=== PATIENT | male | born 1975 | race Caucasian/White ===

== ENCOUNTER 2021-03-21 11:37 | Emergency (ER) | payer MEDICARE, MEDICAID | END 2021-03-21 14:00 | disposition home or self-care (01) | LOC: CSHERS 11:37 | DX: S39.012A Strain of muscle, fascia and tendon of lower back, initial encounter (principal); S00.03XA Contusion of scalp, initial encounter; I10 Essential (primary) hypertension; F17.210 Nicotine dependence, cigarettes, uncomplicated; W19.XXXA Unspecified fall, initial encounter | CPT/HCPCS: 72100 ==

== ENCOUNTER 2021-11-25 21:26 | Inpatient (IN) | payer MEDICARE, MEDICAID ==
[2021-11-25] MEDS ORDERED: Ondansetron PF 4 MG/2 ML Vial ONE (21:57)
[2021-11-25] MEDS ORDERED: Ketorolac Tromethamine 30 MG/ML VIAL ONE (21:58)
[2021-11-25 22:03] LABS: #Basophils 0.1 10x3/uL (0.0-0.2); #Eosinphils 0.1 10x3/uL (0.0-0.5); #Monocytes 1.6 10x3/uL (0.0-1.1); #Neutrophils 13.1 10x3/uL (1.5-8.4); %Basophils 0.5 % (0.0-2.0); %Eosinophils 0.3 % (0.0-6.0); %Lymphocytes 14.5 % (18.0-47.0); %Monocytes 9.1 % (0.0-10.0); %Neutrophils 75.3 % (40.0-75.0); Hemoglobin 15.8 g/dL (13.5-17.5); Mean Corpuscular Hemoglobin 28.8 pg (27.0-33.0); Mean Corpuscular Volume 82.3 fl (81.2-95.1); Mean Platelet Volume 8.5 fl (7.4-10.4); Platelet Count 564 10x3/uL (150-450); Red Blood Cell (RBC) Count 5.48 10x6/uL (4.32-5.72); White Blood Cell (WBC) Count 17.5 10x3/uL (3.5-10.5)
[2021-11-25 22:05] LABS: ALT (SGPT) 13 U/L (8-55); AST (SGOT) 12 U/L (5-34); Albumin 5.2 g/dL (3.5-5.0); Alkaline Phosphatase 142 U/L (40-110); Anion Gap 24 mmol/L (10-20); BUN (Urea Nitrogen) 38 mg/dL (8.9-20.6); Bilirubin, Total 0.7 mg/dL (0.2-1.2); Calc. Creatinine Clearance 0 mL/min (70-130); Calcium 11.1 mg/dL (7.8-10.44); Carbon Dioxide 26 mmol/L (22-29); Chloride 83 mmol/L (98-107); Globulin 4.1 g/dL (2.4-3.5); Glucose 417 mg/dL (70-105); Potassium 4.6 mmol/L (3.5-5.1); Protein, Total 9.3 g/dL (6.0-8.3); Sodium 128 mmol/L (136-145)
[2021-11-25] MEDS ORDERED: INSULIN REGULAR IN 0.9 % NACL 100 UNIT/100 ML BAG ONE (22:49)
[2021-11-25 23:18] LABS: Bilirubin Neg (Negative); Blood, Urine Negative (Negative); Clarity Clear (Clear); Glucose, Urine (Dipstick) >=1000 mg/dL (Negative); Ketone, Urine 150 mg/dL (Negative); Leukocyte Negative (Negative); Nitrite Negative (Negative); Protein, Urine (Dipstick) 15 mg/dl (Neg-Trace); Specific Gravity, Urine 1.015 (1.002-1.036); Urobilinogen Normal mg/dL (Less than 2)
[2021-11-25 23:21] LABS: Actual Bicarbonate (HCO3v) 28 mEq/L (22-28); Base Excess 1.9 mEq/L (-2.0 to +3.0); Calcium, Ionized (venous) 1.09 mmol/L (1.16-1.32); Chloride (VBG) 88 mmol/L (98-106); Hemoglobin (Hb) 14.9 g/dL (13.2-17.3); Potassium (VBG) 4.81 mmol/L (3.70-5.30); Puncture Site Other Site; RapidComm Collect By CSUC.CNC; Sodium 128.2 mmol/L (133-146); pH (venous) 7.37 (7.32-7.43)
[2021-11-25] MEDS ORDERED: NS 0.9% w/ 20 MEQ KCL 1,000 ML ONE (23:49)
[2021-11-25 23:51] LABS: SARS-CoV-2 NAA Rapid Test Not Detected (NotDetected)
[2021-11-26] MEDS ORDERED: Ondansetron PF 4 MG/2 ML Vial IVP PRN (01:26)
[2021-11-26] MEDS ORDERED: NS 0.9% w/ 20 MEQ KCL 1,000 ML IV PRN ×2 (01:28)
[2021-11-26] MEDS ORDERED: Electrolyte Replacement Protocol 1 EACH IVPB SCH (01:28)
[2021-11-26] MEDS ORDERED: Sodium Chloride 0.9% 1,000 ML IV PRN ×4 (01:28)
[2021-11-26] MEDS ORDERED: D5 1/2 NS w/20 mEq KCL 1,000 ML IV PRN (01:28)
[2021-11-26 01:29] VITALS: BMI 33.7
[2021-11-26] MEDS ORDERED: INSULIN REGULAR IN 0.9 % NACL 100 UNIT in Premix Bag 1 BAG IVPB SCH (01:45)
[2021-11-26 02:08] LABS: Lactic Acid 1.6 mmol/L (0.5-2.2)
[2021-11-26] MEDS: Pantoprazole 40 MG VIAL IVP SCH ×2 (02:08→14:34)
[2021-11-26] MEDS: Lorazepam 2 MG/ML VIAL SLOW IVP PRN ×2 (02:09→23:55)
[2021-11-26 02:19] LABS: Troponin I Less than 0.010 ng/mL (< 0.028)
[2021-11-26 02:33] LABS: Anion Gap 16 mmol/L (10-20); BUN (Urea Nitrogen) 38 mg/dL (8.9-20.6); Calc. Creatinine Clearance 100 mL/min (70-130); Calcium 9.3 mg/dL (7.8-10.44); Carbon Dioxide 26 mmol/L (22-29); Chloride 97 mmol/L (98-107); Glucose 79 mg/dL (70-105); Magnesium 1.8 mg/dL (1.6-2.6); Phosphorus 2.7 mg/dL (2.3-4.7); Potassium 4.3 mmol/L (3.5-5.1); Sodium 135 mmol/L (136-145)
[2021-11-26 04:45] LABS: #Basophils 0.1 10x3/uL (0.0-0.2); #Eosinphils 0.1 10x3/uL (0.0-0.5); #Monocytes 1.7 10x3/uL (0.0-1.1); #Neutrophils 14.8 10x3/uL (1.5-8.4); %Basophils 0.4 % (0.0-2.0); %Eosinophils 0.6 % (0.0-6.0); %Lymphocytes 10.6 % (18.0-47.0); %Monocytes 9.2 % (0.0-10.0); %Neutrophils 78.8 % (40.0-75.0); Hemoglobin 13.4 g/dL (13.5-17.5); Mean Corpuscular HGB CONC 34.3 g/dL (32.0-36.0); Mean Corpuscular Hemoglobin 28.8 pg (27.0-33.0); Mean Corpuscular Volume 84.1 fl (81.2-95.1); Mean Platelet Volume 8.6 fl (7.4-10.4); Platelet Count 423 10x3/uL (150-450); RBC Distribution Width 13.3 % (11.5-14.5); Red Blood Cell (RBC) Count 4.65 10x6/uL (4.32-5.72); White Blood Cell (WBC) Count 18.8 10x3/uL (3.5-10.5)
[2021-11-26 06:00] LABS: Anion Gap 17 mmol/L (10-20); BUN (Urea Nitrogen) 37 mg/dL (8.9-20.6); Calc. Creatinine Clearance 102 mL/min (70-130); Calcium 8.6 mg/dL (7.8-10.44); Carbon Dioxide 22 mmol/L (22-29); Chloride 100 mmol/L (98-107); Glucose 129 mg/dL (70-105); Sodium 134 mmol/L (136-145)
[2021-11-26] MEDS ORDERED: Magnesium 2 GM/50 ML(in water) 2 GM in Premix Bag 1 BAG IVPB SCH (06:00)
[2021-11-26 06:07] LABS: Troponin I 0.012 ng/mL (< 0.028)
[2021-11-26] MEDS: Dextrose 5 %-0.45 % NaCl 1,000 ML IV PRN ×4 (06:23→21:06)
[2021-11-26] MEDS: Arformoterol 15 MCG/2 ML NEB NEB SCH ×2 (06:30→19:07)
[2021-11-26] MEDS: Multivitamin W/ Minerals 1 TAB PO SCH (08:39)
[2021-11-26] MEDS: Cyanocobalamin (Vitamin B-12) 1,000 MCG TAB PO SCH (08:40)
[2021-11-26] MEDS: Folic Acid 1 MG TAB PO SCH (08:40)
[2021-11-26] MEDS: Lisinopril 20 MG TAB PO SCH (08:40)
[2021-11-26] MEDS: Metoprolol Tartrate 25 MG TAB PO SCH ×2 (08:40→20:37)
[2021-11-26] MEDS: Magnesium Oxide 400 MG TAB PO SCH (08:40)
[2021-11-26] MEDS: Thiamine 100 MG TAB PO SCH (08:40)
[2021-11-26 09:38] LABS: Amphetamine Not Detected (NotDetected); Barbiturates Screen Not Detected (NotDetected); Benzodiazepine Screen Detected (NotDetected); Cocaine Metabolite Screen Not Detected (NotDetected); Methadone Not Detected (NotDetected); Methamphetamine Not Detected (NotDetected); Opiate Screen Not Detected (NotDetected); Oxycodone Screen Not Detected (NotDetected); Phencyclidine (PCP) Not Detected (NotDetected); THC/Cannabinoid Screen Detected (NotDetected); Tricyclic Screen Not Detected (NotDetected)
[2021-11-26 09:51] LABS: Anion Gap 12 mmol/L (10-20); BUN (Urea Nitrogen) 34 mg/dL (8.9-20.6); Calc. Creatinine Clearance 107 mL/min (70-130); Calcium 8.4 mg/dL (7.8-10.44); Carbon Dioxide 24 mmol/L (22-29); Chloride 102 mmol/L (98-107); Glucose 159 mg/dL (70-105); Potassium 4.2 mmol/L (3.5-5.1); Sodium 134 mmol/L (136-145)
[2021-11-26] MEDS ORDERED: Acetaminophen 325 MG TAB PO PRN (10:31)
[2021-11-26] MEDS ORDERED: HYDROcodone/Acetaminophen 5/325 mg Tablet PO PRN (10:31)
[2021-11-26 13:50] LABS: Anion Gap 16 mmol/L (10-20); BUN (Urea Nitrogen) 31 mg/dL (8.9-20.6); Calc. Creatinine Clearance 114 mL/min (70-130); Calcium 8.5 mg/dL (7.8-10.44); Carbon Dioxide 23 mmol/L (22-29); Chloride 102 mmol/L (98-107); Glucose 148 mg/dL (70-105); Potassium 4.5 mmol/L (3.5-5.1); Sodium 136 mmol/L (136-145)
[2021-11-26 17:23] LABS: Hemoglobin A1c 10.8 % (4.0-6.0)
[2021-11-26 20:01] LABS: Anion Gap 13 mmol/L (10-20); BUN (Urea Nitrogen) 25 mg/dL (8.9-20.6); Calc. Creatinine Clearance 114 mL/min (70-130); Calcium 8.9 mg/dL (7.8-10.44); Carbon Dioxide 27 mmol/L (22-29); Chloride 101 mmol/L (98-107); Glucose 194 mg/dL (70-105); Potassium 4.6 mmol/L (3.5-5.1); Sodium 136 mmol/L (136-145)
[2021-11-27] MEDS: Lorazepam 2 MG/ML VIAL SLOW IVP PRN ×4 (02:57→20:51)
[2021-11-27] MEDS: Pantoprazole 40 MG VIAL IVP SCH (03:14)
[2021-11-27 04:38] LABS: Hemoglobin 12.9 g/dL (13.5-17.5); Mean Corpuscular HGB CONC 33.9 g/dL (32.0-36.0); Mean Corpuscular Hemoglobin 28.9 pg (27.0-33.0); Mean Corpuscular Volume 85.2 fl (81.2-95.1); Mean Platelet Volume 8.7 fl (7.4-10.4); Platelet Count 362 10x3/uL (150-450); RBC Distribution Width 13.5 % (11.5-14.5); Red Blood Cell (RBC) Count 4.47 10x6/uL (4.32-5.72); White Blood Cell (WBC) Count 11.3 10x3/uL (3.5-10.5)
[2021-11-27 05:00] LABS: Anion Gap 18 mmol/L (10-20); BUN (Urea Nitrogen) 16 mg/dL (8.9-20.6); Calc. Creatinine Clearance 116 mL/min (70-130); Calcium 8.6 mg/dL (7.8-10.44); Carbon Dioxide 20 mmol/L (22-29); Chloride 104 mmol/L (98-107); Glucose 241 mg/dL (70-105); Magnesium 1.9 mg/dL (1.6-2.6); Potassium 4.9 mmol/L (3.5-5.1); Sodium 137 mmol/L (136-145)
[2021-11-27] MEDS: Dextrose 5 %-0.45 % NaCl 1,000 ML IV PRN (06:16)
[2021-11-27] MEDS: Arformoterol 15 MCG/2 ML NEB NEB SCH ×2 (07:11→18:34)
[2021-11-27] MEDS: Magnesium Oxide 400 MG TAB PO SCH (09:20)
[2021-11-27] MEDS: Thiamine 100 MG TAB PO SCH (09:20)
[2021-11-27] MEDS: Metoprolol Tartrate 25 MG TAB PO SCH ×2 (09:20→20:50)
[2021-11-27] MEDS: Cyanocobalamin (Vitamin B-12) 1,000 MCG TAB PO SCH (09:20)
[2021-11-27] MEDS: Folic Acid 1 MG TAB PO SCH (09:20)
[2021-11-27] MEDS: Multivitamin W/ Minerals 1 TAB PO SCH (09:20)
[2021-11-27] MEDS: Lisinopril 20 MG TAB PO SCH (09:20)
[2021-11-27] MEDS ORDERED: Dextrose 5% in Water 1,000 ML IV PRN (10:08)
[2021-11-27] MEDS ORDERED: Dextrose 50% Abboject 50 ML SYRINGE SLOW IVP PRN (10:08)
[2021-11-27] MEDS ORDERED: Lantus 1000 UNITS/10 ML VIAL SC SCH ×2 (11:00→21:00)
[2021-11-27] MEDS ORDERED: Lorazepam 2 MG/ML VIAL IM PRN (11:41)
[2021-11-27] MEDS: HumaLOG 300 UNITS/3 ML VIAL SC PRN ×3 (13:01→20:52)
[2021-11-27] MEDS: Sodium Chloride 0.45% 1,000 ML IV SCH ×2 (13:02→20:50)
[2021-11-27 13:08] LABS: Anion Gap 12 mmol/L (10-20); BUN (Urea Nitrogen) 12 mg/dL (8.9-20.6); Calc. Creatinine Clearance 132 mL/min (70-130); Calcium 8.3 mg/dL (7.8-10.44); Carbon Dioxide 24 mmol/L (22-29); Chloride 103 mmol/L (98-107); Glucose 284 mg/dL (70-105); Potassium 4.2 mmol/L (3.5-5.1); Sodium 135 mmol/L (136-145)
[2021-11-27] MEDS ORDERED: Zolpidem Tartrate 5 MG TAB PO SCH (20:45)
[2021-11-28] MEDS: Lorazepam 2 MG/ML VIAL SLOW IVP PRN ×2 (03:15→09:00)
[2021-11-28 04:43] LABS: Anion Gap 12 mmol/L (10-20); BUN (Urea Nitrogen) 14 mg/dL (8.9-20.6); Calc. Creatinine Clearance 146 mL/min (70-130); Calcium 8.6 mg/dL (7.8-10.44); Carbon Dioxide 25 mmol/L (22-29); Chloride 105 mmol/L (98-107); Glucose 145 mg/dL (70-105); Potassium 4.1 mmol/L (3.5-5.1); Sodium 138 mmol/L (136-145)
[2021-11-28] MEDS: Arformoterol 15 MCG/2 ML NEB NEB SCH (07:22)
[2021-11-28 07:37] VITALS: BP 173/91; TEMP 98.3
[2021-11-28] MEDS: Metoprolol Tartrate 25 MG TAB PO SCH (08:02)
[2021-11-28] MEDS: Magnesium Oxide 400 MG TAB PO SCH (08:02)
[2021-11-28] MEDS: Lisinopril 20 MG TAB PO SCH (08:02)
[2021-11-28] MEDS: Multivitamin W/ Minerals 1 TAB PO SCH (08:02)
[2021-11-28] MEDS: Folic Acid 1 MG TAB PO SCH (08:02)
[2021-11-28] MEDS: Cyanocobalamin (Vitamin B-12) 1,000 MCG TAB PO SCH (08:02)
[2021-11-28] MEDS: HumaLOG 300 UNITS/3 ML VIAL SC PRN ×2 (08:05→11:16)
[2021-11-28] MEDS: Thiamine 100 MG TAB PO SCH (09:05)
[2021-11-28] MEDS ORDERED: Lorazepam 1 MG TAB PO PRN (11:42)
[2021-11-29] MEDS ORDERED: Lorazepam 1 MG TAB PO PRN (11:42)
[2021-11-30] MEDS ORDERED: Lorazepam 0.5 MG TAB PO PRN (11:42)
== END 2021-11-28 16:19 | disposition home or self-care (01) | DRG 638 ==
LOC: CSHERS 21:26 → UNDOADMIN 11-26 00:52 → CSHICU 11-26 00:52
PROVIDERS: ADMIT Family Medicine; ATTEND Internal Medicine
PROC: HZ2ZZZZ Detoxification Services for Substance Abuse Treatment (ICD-10-PCS; principal; 2021-11-26)
DX: E11.10 Type 2 diabetes mellitus with ketoacidosis without coma (principal); N17.9 Acute kidney failure, unspecified; E86.0 Dehydration; F10.20 Alcohol dependence, uncomplicated; Z20.822 Contact with and (suspected) exposure to COVID-19; I10 Essential (primary) hypertension; K52.9 Noninfective gastroenteritis and colitis, unspecified; J44.9 Chronic obstructive pulmonary disease, unspecified; F12.90 Cannabis use, unspecified, uncomplicated; F17.210 Nicotine dependence, cigarettes, uncomplicated; F19.11 Other psychoactive substance abuse, in remission; Z79.899 Other long term (current) drug therapy; Z71.6 Tobacco abuse counseling; Z71.51 Drug abuse counseling and surveillance of drug abuser; Z91.14 Patient's other noncompliance with medication regimen
CPT/HCPCS: 36415; 36416; 71045; 74177; 80048; 80053; 80306; 81003; 82010; 82805; 83036; 83605; 83690; 83735; 84100; 84484; 85025; 85027; 87040; 87086; 93005; 93010; 94760; 96365; 96366; 96368; 96375; C9113; J1815; J1885; J2060; J2405; J3475; J3480; J7042; J7620; U0002

== ENCOUNTER 2021-12-03 14:08 | Emergency (ER) | payer MEDICARE, MEDICAID ==
[2021-12-03] MEDS ORDERED: Ondansetron PF 4 MG/2 ML Vial ONE (14:39)
[2021-12-03] MEDS ORDERED: Morphine 4 MG/ML VIAL ONE ×2 (14:39→15:36)
[2021-12-03 15:07] LABS: ALT (SGPT) 16 U/L (8-55); AST (SGOT) 12 U/L (5-34); Albumin 4.2 g/dL (3.5-5.0); Alkaline Phosphatase 123 U/L (40-110); Anion Gap 19 mmol/L (10-20); BUN (Urea Nitrogen) 19 mg/dL (8.9-20.6); Bilirubin, Total 0.5 mg/dL (0.2-1.2); Calc. Creatinine Clearance 0 mL/min (70-130); Calcium 9.3 mg/dL (7.8-10.44); Carbon Dioxide 22 mmol/L (22-29); Chloride 100 mmol/L (98-107); Glucose 249 mg/dL (70-105); Lipase 35 U/L (8-78); Potassium 3.9 mmol/L (3.5-5.1); Protein, Total 7.2 g/dL (6.0-8.3); Sodium 137 mmol/L (136-145)
[2021-12-03] MEDS ORDERED: Iopamidol 300 61% 100 ML VIAL FS ONE (15:28)
[2021-12-03 15:30] LABS: #Basophils 0.1 10x3/uL (0.0-0.2); #Eosinphils 0.2 10x3/uL (0.0-0.5); #Monocytes 0.9 10x3/uL (0.0-1.1); #Neutrophils 5.1 10x3/uL (1.5-8.4); %Basophils 0.8 % (0.0-2.0); %Eosinophils 2.1 % (0.0-6.0); %Lymphocytes 20.1 % (18.0-47.0); %Monocytes 10.9 % (0.0-10.0); %Neutrophils 65.6 % (40.0-75.0); Hemoglobin 13.2 g/dL (13.5-17.5); Mean Corpuscular HGB CONC 33.6 g/dL (32.0-36.0); Mean Corpuscular Hemoglobin 28.8 pg (27.0-33.0); Mean Corpuscular Volume 85.8 fl (81.2-95.1); Mean Platelet Volume 8.9 fl (7.4-10.4); Platelet Count 498 10x3/uL (150-450); RBC Distribution Width 13.8 % (11.5-14.5); Red Blood Cell (RBC) Count 4.58 10x6/uL (4.32-5.72); White Blood Cell (WBC) Count 7.8 10x3/uL (3.5-10.5)
[2021-12-03] MEDS ORDERED: Ketorolac Tromethamine 30 MG/ML VIAL ONE (16:35)
== END 2021-12-03 17:02 | disposition home or self-care (01) ==
LOC: CSHERS 14:08
DX: R10.13 Epigastric pain (principal); R11.2 Nausea with vomiting, unspecified; G89.29 Other chronic pain; I10 Essential (primary) hypertension; E11.9 Type 2 diabetes mellitus without complications; E78.5 Hyperlipidemia, unspecified; F17.210 Nicotine dependence, cigarettes, uncomplicated; Z87.19 Personal history of other diseases of the digestive system
CPT/HCPCS: 71045; 74177; 80053; 83690; 84484; 85025; 96374; 96375; 96376; J1885; J2270; J2405; Q9967

== ENCOUNTER 2021-12-20 19:42 | Emergency (ER) | payer MEDICARE, MEDICAID ==
[2021-12-20 20:15] LABS: #Basophils 0.1 10x3/uL (0.0-0.2); #Eosinphils 0.1 10x3/uL (0.0-0.5); #Neutrophils 6.7 10x3/uL (1.5-8.4); %Basophils 0.6 % (0.0-2.0); %Eosinophils 1.1 % (0.0-6.0); %Lymphocytes 24.5 % (18.0-47.0); %Monocytes 9.7 % (0.0-10.0); %Neutrophils 63.8 % (40.0-75.0); Hemoglobin 15.6 g/dL (13.5-17.5); Mean Corpuscular HGB CONC 34.2 g/dL (32.0-36.0); Mean Corpuscular Hemoglobin 28.5 pg (27.0-33.0); Mean Corpuscular Volume 83.4 fl (81.2-95.1); Mean Platelet Volume 8.8 fl (7.4-10.4); Platelet Count 429 10x3/uL (150-450); RBC Distribution Width 13.2 % (11.5-14.5); Red Blood Cell (RBC) Count 5.47 10x6/uL (4.32-5.72); White Blood Cell (WBC) Count 10.5 10x3/uL (3.5-10.5)
[2021-12-20] MEDS ORDERED: Ondansetron PF 4 MG/2 ML Vial ONE (20:16)
[2021-12-20] MEDS ORDERED: Morphine 4 MG/ML VIAL ONE ×2 (20:16→21:23)
[2021-12-20 21:11] LABS: ALT (SGPT) 15 U/L (8-55); AST (SGOT) 9 U/L (5-34); Albumin 4.5 g/dL (3.5-5.0); Alkaline Phosphatase 109 U/L (40-110); Anion Gap 20 mmol/L (10-20); BUN (Urea Nitrogen) 31 mg/dL (8.9-20.6); Bilirubin, Total 0.5 mg/dL (0.2-1.2); Calc. Creatinine Clearance 0 mL/min (70-130); Calcium 9.4 mg/dL (7.8-10.44); Carbon Dioxide 23 mmol/L (22-29); Chloride 93 mmol/L (98-107); Globulin 2.9 g/dL (2.4-3.5); Glucose 342 mg/dL (70-105); Lipase 26 U/L (8-78); Potassium 4.2 mmol/L (3.5-5.1); Protein, Total 7.4 g/dL (6.0-8.3); Sodium 132 mmol/L (136-145)
[2021-12-20 23:27] LABS: Anion Gap 18 mmol/L (10-20); BUN (Urea Nitrogen) 29 mg/dL (8.9-20.6); Calc. Creatinine Clearance 0 mL/min (70-130); Calcium 9.1 mg/dL (7.8-10.44); Carbon Dioxide 24 mmol/L (22-29); Chloride 97 mmol/L (98-107); Glucose 259 mg/dL (70-105); Potassium 4.1 mmol/L (3.5-5.1); Sodium 135 mmol/L (136-145)
== END 2021-12-20 23:50 | disposition home or self-care (01) ==
LOC: CSHERS 19:42
DX: N17.9 Acute kidney failure, unspecified (principal); E86.0 Dehydration; I10 Essential (primary) hypertension; E11.9 Type 2 diabetes mellitus without complications; E78.5 Hyperlipidemia, unspecified; F17.210 Nicotine dependence, cigarettes, uncomplicated
CPT/HCPCS: 76705; 80053; 83690; 85025; 96361; 96374; 96375; 96376; J2270; J2405

== ENCOUNTER 2022-01-22 17:39 | Inpatient (IN) | payer OTHER ==
[2022-01-22 18:45] LABS: #Basophils 0.1 10x3/uL (0.0-0.2); #Eosinphils 0.3 10x3/uL (0.0-0.5); #Monocytes 0.8 10x3/uL (0.0-1.1); #Neutrophils 4.9 10x3/uL (1.5-8.4); %Basophils 0.9 % (0.0-2.0); %Eosinophils 3.4 % (0.0-6.0); %Lymphocytes 31.1 % (18.0-47.0); %Monocytes 9.3 % (0.0-10.0); %Neutrophils 54.6 % (40.0-75.0); Hemoglobin 11.8 g/dL (13.5-17.5); Mean Corpuscular HGB CONC 31.7 g/dL (32.0-36.0); Mean Corpuscular Hemoglobin 29.1 pg (27.0-33.0); Mean Corpuscular Volume 91.6 fl (81.2-95.1); Mean Platelet Volume 8.4 fl (7.4-10.4); Platelet Count 341 10x3/uL (150-450); Red Blood Cell (RBC) Count 4.06 10x6/uL (4.32-5.72); White Blood Cell (WBC) Count 8.9 10x3/uL (3.5-10.5)
[2022-01-22 18:46] LABS: ALT (SGPT) 11 U/L (8-55); AST (SGOT) 7 U/L (5-34); Albumin 3.9 g/dL (3.5-5.0); Alkaline Phosphatase 78 U/L (40-110); Anion Gap 18 mmol/L (10-20); BUN (Urea Nitrogen) 63 mg/dL (8.9-20.6); Bilirubin, Total 0.2 mg/dL (0.2-1.2); CK (CPK) 56 U/L (30-200); Calc. Creatinine Clearance 0 mL/min (70-130); Calcium 8.6 mg/dL (7.8-10.44); Carbon Dioxide 23 mmol/L (22-29); Chloride 101 mmol/L (98-107); Globulin 2.4 g/dL (2.4-3.5); Glucose 112 mg/dL (70-105); Potassium 6.3 mmol/L (3.5-5.1); Protein, Total 6.3 g/dL (6.0-8.3); Sodium 136 mmol/L (136-145)
[2022-01-22 19:02] LABS: SARS-CoV-2 NAA Rapid Test Not Detected (NotDetected)
[2022-01-22] MEDS ORDERED: Norepinephrine 8 MG/0.9% NS 250 ML ONE (19:12)
[2022-01-22] MEDS ORDERED: Fentanyl 100 MCG/2 ML VIAL ONE ×2 (19:34→20:57)
[2022-01-22 20:13] LABS: Anion Gap 16 mmol/L (10-20); BUN (Urea Nitrogen) 60 mg/dL (8.9-20.6); Calc. Creatinine Clearance 0 mL/min (70-130); Calcium 8.2 mg/dL (7.8-10.44); Carbon Dioxide 22 mmol/L (22-29); Chloride 105 mmol/L (98-107); Glucose 147 mg/dL (70-105); Sodium 136 mmol/L (136-145)
[2022-01-22 20:15] LABS: Potassium 6.6 mmol/L (3.5-5.1)
[2022-01-22] MEDS ORDERED: Sodium Bicarb 50 MEQ/50 ML Abboject 8.4% SYRINGE ONE ×2 (20:34→20:35)
[2022-01-22] MEDS ORDERED: Insulin Regular 300 UNITS/3 ML VIAL ONE (20:36)
[2022-01-22] MEDS ORDERED: Dextrose 50% Abboject 50 ML SYRINGE ONE (20:36)
[2022-01-22] MEDS ORDERED: Albuterol Sulfate 2.5 mg/3 ml Neb ONE (20:41)
[2022-01-22] MEDS ORDERED: Calcium Gluconate 9.2 MEQ in Sodium Chloride 0.9% 100 ML IVPB SCH (20:45)
[2022-01-22] MEDS ORDERED: Senokot S 8.6-50 MG TAB PO PRN (21:23)
[2022-01-22] MEDS ORDERED: Dextrose 5% in Water 1,000 ML IV PRN (21:23)
[2022-01-22] MEDS ORDERED: Ondansetron PF 4 MG/2 ML Vial IVP PRN (21:23)
[2022-01-22] MEDS ORDERED: Guaifenesin DM 100-10/5 ML UDCUP PO PRN (21:23)
[2022-01-22] MEDS ORDERED: Acetaminophen 325 MG TAB PO PRN (21:23)
[2022-01-22] MEDS ORDERED: Dextrose 50% Abboject 50 ML SYRINGE SLOW IVP PRN (21:23)
[2022-01-22] MEDS ORDERED: Calcium Carbonate 500 MG ChewTAB PO PRN (21:23)
[2022-01-22] MEDS ORDERED: HumaLOG 300 UNITS/3 ML VIAL SC PRN (21:23)
[2022-01-22 21:30] LABS: Lactic Acid 2.1 mmol/L (0.5-2.2)
[2022-01-22] MEDS ORDERED: Norepinephrine 8 MG/0.9% NS 250 ML IVPB SCH (21:30)
[2022-01-22] MEDS ORDERED: Cefepime 2 GM VIAL ONE (21:38)
[2022-01-22 21:44] LABS: Actual Bicarbonate (HCO3a) 22.4 mEq/L (22-28); Base Excess (BEa) -3.3 mEq/L (-2.0 to +3.0); CO2 Tension 42.5 mmHg (35.0-45.0); Calcium, Ionized (arterial) 1.18 mmol/L (1.12-1.30); Carboxyhemoglobin (COHb) 2.4 gm% (0.0-3.0); Critical Notified Whom: SIMCH; Hemoglobin (Hb) 11.9 g/dL (14.0-18.0); O2 Tension (PaO2), arterial 62.1 mmHg (80.0-100.0); Potassium - ABG Lab 5.8 mmol/L (3.70-5.30); Puncture Site LRA; pH, Arterial 7.34 (7.35-7.45)
[2022-01-22 21:48] LABS: ALV-art Gradient 55.895 mmHg (0-20)
[2022-01-22 22:20] LABS: Lactic Acid 1.9 mmol/L (0.5-2.2)
[2022-01-22 23:32] VITALS: BMI 33.7
[2022-01-22 23:38] LABS: Anion Gap 15 mmol/L (10-20); BUN (Urea Nitrogen) 58 mg/dL (8.9-20.6); Calc. Creatinine Clearance 46 mL/min (70-130); Calcium 8.8 mg/dL (7.8-10.44); Carbon Dioxide 24 mmol/L (22-29); Chloride 103 mmol/L (98-107); Glucose 172 mg/dL (70-105); Potassium 6.3 mmol/L (3.5-5.1); Sodium 136 mmol/L (136-145)
[2022-01-22 23:41] LABS: Bilirubin Neg (Negative); Blood, Urine 150 (Negative); Clarity Clear (Clear); Glucose, Urine (Dipstick) 100 mg/dL (Negative); Ketone, Urine Negative (Negative); Leukocyte 25 (Negative); Nitrite Negative (Negative); Protein, Urine (Dipstick) 15 mg/dl (Neg-Trace); Specific Gravity, Urine 1.015 (1.002-1.036); Urobilinogen Normal mg/dL (Less than 2)
[2022-01-22 23:43] LABS: Bacteria/HPF Rare-Few HPF (None Seen); Mucous/LPF 1+ LPF (<2+); RBC/HPF 0-3 HPF (0-3); Squamous Epithelial 0-3 HPF (0-3); WBC/HPF 0-3 HPF (0-3)
[2022-01-23] MEDS: Sodium Chloride 0.45% 1,000 ML IV SCH ×3 (00:14→15:53)
[2022-01-23] MEDS ORDERED: Calcium Gluc 4.6 MEQ/10 ML (100 MG/ML) SLOW IVP SCH (00:45)
[2022-01-23] MEDS ORDERED: Albuterol Sulfate 2.5 mg/3 ml Neb NEB SCH (00:45)
[2022-01-23] MEDS: HYDROcodone/Acetaminophen 5/325 mg Tablet PO PRN ×3 (00:56→20:19)
[2022-01-23 04:30] LABS: #Basophils 0.1 10x3/uL (0.0-0.2); #Eosinphils 0.3 10x3/uL (0.0-0.5); #Neutrophils 7.5 10x3/uL (1.5-8.4); %Basophils 0.5 % (0.0-2.0); %Eosinophils 2.3 % (0.0-6.0); %Lymphocytes 19.1 % (18.0-47.0); %Monocytes 8.8 % (0.0-10.0); %Neutrophils 68.8 % (40.0-75.0); Hemoglobin 10.8 g/dL (13.5-17.5); Mean Corpuscular HGB CONC 31.8 g/dL (32.0-36.0); Mean Corpuscular Hemoglobin 28.9 pg (27.0-33.0); Mean Corpuscular Volume 90.9 fl (81.2-95.1); Mean Platelet Volume 8.7 fl (7.4-10.4); Platelet Count 327 10x3/uL (150-450); Red Blood Cell (RBC) Count 3.74 10x6/uL (4.32-5.72); White Blood Cell (WBC) Count 10.9 10x3/uL (3.5-10.5)
[2022-01-23 04:35] LABS: PTT 27.7 sec (22.0-33.0); Prothrombin Time 10.5 sec (9.5-12.1)
[2022-01-23 04:43] LABS: Anion Gap 16 mmol/L (10-20); BUN (Urea Nitrogen) 49 mg/dL (8.9-20.6); CK (CPK) 109 U/L (30-200); Calc. Creatinine Clearance 54 mL/min (70-130); Calcium 8.7 mg/dL (7.8-10.44); Carbon Dioxide 25 mmol/L (22-29); Chloride 105 mmol/L (98-107); Glucose 145 mg/dL (70-105); Phosphorus 3.8 mg/dL (2.3-4.7); Potassium 5.3 mmol/L (3.5-5.1); Sodium 141 mmol/L (136-145)
[2022-01-23] MEDS: Mometasone/Formoterol 200/5 60 PUFF INH SCH ×2 (07:25→19:29)
[2022-01-23] MEDS ORDERED: Morphine 2 MG/ML VIAL SLOW IVP PRN (08:22)
[2022-01-23] MEDS: Morphine 2 MG/ML VIAL SLOW IVP PRN (08:29)
[2022-01-23] MEDS: Famotidine/PF 20 mg/2ml Vial SLOW IVP SCH (08:34)
[2022-01-23] MEDS ORDERED: Heparin 5,000 UNITS/ML VIAL SC SCH (09:00)
[2022-01-23] MEDS ORDERED: Morphine 2 MG/ML VIAL SLOW IVP SCH (09:00)
[2022-01-23] MEDS: Cyanocobalamin (Vitamin B-12) 1,000 MCG TAB PO SCH (09:12)
[2022-01-23] MEDS: Multivitamin W/ Minerals 1 TAB PO SCH (09:12)
[2022-01-23] MEDS: Folic Acid 1 MG TAB PO SCH (09:12)
[2022-01-23] MEDS: Thiamine 100 MG TAB PO SCH (09:13)
[2022-01-23 09:27] LABS: Anion Gap 16 mmol/L (10-20); BUN (Urea Nitrogen) 42 mg/dL (8.9-20.6); Calc. Creatinine Clearance 65 mL/min (70-130); Calcium 8.7 mg/dL (7.8-10.44); Carbon Dioxide 26 mmol/L (22-29); Chloride 104 mmol/L (98-107); Glucose 148 mg/dL (70-105); Potassium 5.2 mmol/L (3.5-5.1); Sodium 141 mmol/L (136-145)
[2022-01-23] MEDS ORDERED: Fentanyl 250 MCG/5 ML VIAL ONE (09:52)
[2022-01-23] MEDS ORDERED: PROPOFOL 20 ML ONE ×2 (09:52→14:14)
[2022-01-23] MEDS ORDERED: CEFAZOLIN 1 GM VIAL ONE (13:08)
[2022-01-23] MEDS ORDERED: Ondansetron PF 4 MG/2 ML Vial ONE (13:42)
[2022-01-23] MEDS ORDERED: Ketorolac Tromethamine 30 MG/ML VIAL ONE (13:43)
[2022-01-23] MEDS ORDERED: Lidocaine 1% PF 5 ML VIAL ONE (13:43)
[2022-01-23] MEDS ORDERED: PHENYLEPHRINE-NS 100 MCG/ML 10 ML SYRINGE ONE ×2 (13:56→14:44)
[2022-01-23] MEDS ORDERED: Fentanyl 100 MCG/2 ML VIAL ONE ×2 (14:16→15:28)
[2022-01-23] MEDS ORDERED: ceFAZolin 2 GM/Dextrose 50 ML 2 GM in Premix Bag 1 BAG IVPB SCH (15:00)
[2022-01-23] MEDS ORDERED: SUGAMMADEX SODIUM 200 MG/2 ML VIAL ONE (15:09)
[2022-01-23] MEDS: CEFAZOLIN 2 GM in Sodium Chloride 0.9% 100 ML IVPB SCH (20:20)
[2022-01-23] MEDS: Lantus 1000 UNITS/10 ML VIAL SC SCH (20:33)
[2022-01-24] MEDS: Morphine 2 MG/ML VIAL SLOW IVP PRN ×2 (00:01→05:40)
[2022-01-24] MEDS: Sodium Chloride 0.45% 1,000 ML IV SCH ×2 (03:57→13:27)
[2022-01-24] MEDS: HYDROcodone/Acetaminophen 5/325 mg Tablet PO PRN ×3 (04:08→08:12)
[2022-01-24] MEDS: CEFAZOLIN 2 GM in Sodium Chloride 0.9% 100 ML IVPB SCH (04:33)
[2022-01-24 05:27] LABS: #Basophils 0.1 10x3/uL (0.0-0.2); #Eosinphils 0.2 10x3/uL (0.0-0.5); #Monocytes 0.9 10x3/uL (0.0-1.1); #Neutrophils 8.1 10x3/uL (1.5-8.4); %Basophils 0.5 % (0.0-2.0); %Eosinophils 2.2 % (0.0-6.0); %Lymphocytes 9.7 % (18.0-47.0); %Monocytes 8.7 % (0.0-10.0); %Neutrophils 78.5 % (40.0-75.0); Mean Corpuscular Hemoglobin 29.1 pg (27.0-33.0); Mean Corpuscular Volume 85.7 fl (81.2-95.1); Mean Platelet Volume 8.3 fl (7.4-10.4); Platelet Count 276 10x3/uL (150-450); RBC Distribution Width 13.4 % (11.5-14.5); Red Blood Cell (RBC) Count 3.78 10x6/uL (4.32-5.72); White Blood Cell (WBC) Count 10.3 10x3/uL (3.5-10.5)
[2022-01-24 05:32] LABS: Anion Gap 16 mmol/L (10-20); BUN (Urea Nitrogen) 23 mg/dL (8.9-20.6); Calc. Creatinine Clearance 103 mL/min (70-130); Calcium 7.8 mg/dL (7.8-10.44); Carbon Dioxide 25 mmol/L (22-29); Chloride 102 mmol/L (98-107); Glucose 199 mg/dL (70-105); Potassium 4.3 mmol/L (3.5-5.1); Sodium 139 mmol/L (136-145)
[2022-01-24] MEDS: Famotidine/PF 20 mg/2ml Vial SLOW IVP SCH (08:11)
[2022-01-24] MEDS: Cyanocobalamin (Vitamin B-12) 1,000 MCG TAB PO SCH (08:14)
[2022-01-24] MEDS: Mometasone/Formoterol 200/5 60 PUFF INH SCH ×2 (08:15→18:57)
[2022-01-24] MEDS: Multivitamin W/ Minerals 1 TAB PO SCH (08:15)
[2022-01-24] MEDS: Folic Acid 1 MG TAB PO SCH (08:15)
[2022-01-24] MEDS: Thiamine 100 MG TAB PO SCH (08:15)
[2022-01-24] MEDS: Enoxaparin Sodium 40 MG/0.4 ML SYRINGE SC SCH (08:16)
[2022-01-24] MEDS: Senokot S 8.6-50 MG TAB PO SCH ×2 (08:43→20:11)
[2022-01-24] MEDS: Morphine 4 MG/ML VIAL SLOW IVP PRN ×2 (10:18→17:47)
[2022-01-24] MEDS: HYDROcodone/Acetaminophen 10/325 mg Tablet PO PRN ×2 (13:27→18:34)
[2022-01-24] MEDS ORDERED: Gabapentin 300 MG CAP PO SCH (18:45)
[2022-01-24] MEDS ORDERED: HYDROcodone/Acetaminophen 10/325 mg Tablet PO PRN (20:10)
[2022-01-24] MEDS ORDERED: HYDROmorphone 0.5 MG/0.5 ML SYRINGE SLOW IVP SCH (20:15)
[2022-01-24] MEDS: Cyclobenzaprine 10 MG TAB PO SCH (20:21)
[2022-01-24] MEDS: Gabapentin 400 MG CAP PO SCH (20:21)
[2022-01-24] MEDS: Lantus 1000 UNITS/10 ML VIAL SC SCH (21:27)
[2022-01-24] MEDS ORDERED: HYDROmorphone 10 mg/100 ml CADD IVPB PRN (21:28)
[2022-01-24] MEDS ORDERED: diphenhydrAMINE 50 MG/ML VIAL IM PRN (21:28)
[2022-01-24] MEDS ORDERED: diphenhydrAMINE 25 MG CAP PO PRN (21:28)
[2022-01-24] MEDS ORDERED: Zolpidem Tartrate 5 MG TAB PO PRN (21:28)
[2022-01-24] MEDS ORDERED: Naloxone HCl 0.4 mg/ml Vial IV PRN (21:28)
[2022-01-24] MEDS ORDERED: Promethazine HCl 25 MG/ML VIAL IM PRN (21:28)
[2022-01-24] MEDS ORDERED: diphenhydrAMINE 50 MG/ML VIAL IVP PRN (21:28)
[2022-01-24] MEDS ORDERED: Ondansetron PF 4 MG/2 ML Vial IVP PRN (21:28)
[2022-01-24] MEDS ORDERED: Communication Order-Pharmacy FS SCH (21:30)
[2022-01-24] MEDS: HYDROmorphone/PF 10 MG in Sodium Chloride 0.9% 49 ML IVPB PRN (22:29)
[2022-01-25] MEDS: Mometasone/Formoterol 200/5 60 PUFF INH SCH ×2 (06:30→20:05)
[2022-01-25] MEDS ORDERED: Gabapentin 300 MG CAP PO SCH (09:00)
[2022-01-25] MEDS: HYDROmorphone/PF 10 MG in Sodium Chloride 0.9% 49 ML IVPB PRN (09:45)
[2022-01-25] MEDS: Cyanocobalamin (Vitamin B-12) 1,000 MCG TAB PO SCH (11:00)
[2022-01-25] MEDS ORDERED: Famotidine 20 MG TAB PO SCH ×2 (11:00)
[2022-01-25] MEDS: Multivitamin W/ Minerals 1 TAB PO SCH (11:00)
[2022-01-25] MEDS: Senokot S 8.6-50 MG TAB PO SCH ×2 (11:00→20:34)
[2022-01-25] MEDS: Folic Acid 1 MG TAB PO SCH (11:00)
[2022-01-25] MEDS: Gabapentin 400 MG CAP PO SCH ×3 (11:00→20:26)
[2022-01-25] MEDS: Cyclobenzaprine 10 MG TAB PO SCH ×3 (11:00→20:28)
[2022-01-25] MEDS: Thiamine 100 MG TAB PO SCH (11:00)
[2022-01-25] MEDS: Enoxaparin Sodium 40 MG/0.4 ML SYRINGE SC SCH (11:00)
[2022-01-25] MEDS: Metoprolol Tartrate 50 MG TAB PO SCH (20:28)
[2022-01-25] MEDS: OXcarbazepine 300 MG TAB PO SCH (20:28)
[2022-01-25] MEDS: metFORMIN 500 MG TAB PO SCH (20:28)
[2022-01-25] MEDS: Lantus 1000 UNITS/10 ML VIAL SC SCH (21:03)
[2022-01-26] MEDS: HYDROmorphone/PF 10 MG in Sodium Chloride 0.9% 49 ML IVPB PRN (00:34)
[2022-01-26] MEDS: Mometasone/Formoterol 200/5 60 PUFF INH SCH (07:12)
[2022-01-26] MEDS ORDERED: Lisinopril 20 MG TAB PO SCH (09:00)
[2022-01-26] MEDS ORDERED: Amantadine HCl 100 mg Capsule PO SCH (09:00)
[2022-01-26] MEDS ORDERED: Famotidine 20 MG TAB PO SCH ×2 (09:00→21:00)
[2022-01-26] MEDS: Enoxaparin Sodium 40 MG/0.4 ML SYRINGE SC SCH (09:07)
[2022-01-26] MEDS: Cyanocobalamin (Vitamin B-12) 1,000 MCG TAB PO SCH (09:07)
[2022-01-26] MEDS: Cyclobenzaprine 10 MG TAB PO SCH ×2 (09:07→15:30)
[2022-01-26] MEDS: Folic Acid 1 MG TAB PO SCH (09:08)
[2022-01-26] MEDS: Metoprolol Tartrate 50 MG TAB PO SCH (09:08)
[2022-01-26] MEDS: metFORMIN 500 MG TAB PO SCH (09:08)
[2022-01-26] MEDS: Gabapentin 400 MG CAP PO SCH ×2 (09:08→15:30)
[2022-01-26] MEDS: OXcarbazepine 300 MG TAB PO SCH (09:10)
[2022-01-26] MEDS: Multivitamin W/ Minerals 1 TAB PO SCH (09:10)
[2022-01-26] MEDS: Thiamine 100 MG TAB PO SCH (09:10)
[2022-01-26] MEDS: Senokot S 8.6-50 MG TAB PO SCH (09:10)
[2022-01-26] MEDS ORDERED: HYDROcodone/Acetaminophen 10/325 mg Tablet PO PRN (12:17)
[2022-01-26 12:22] VITALS: BP 136/72; TEMP 97.4
== END 2022-01-26 15:58 | disposition home or self-care (01) | DRG 492 ==
LOC: CSHERS 17:39 → CSHIMCU 23:26 → CSHTELE 01-25 08:56
PROVIDERS: ADMIT Student in an Organized Health Care Education/Training Program; ATTEND Family Medicine
PROC: 06H033Z Insertion of Infusion Device into Inferior Vena Cava, Percutaneous Approach (ICD-10-PCS; 2022-01-22)
PROC: 0QSH06Z Reposition Left Tibia with Intramedullary Internal Fixation Device, Open Approach (ICD-10-PCS; principal; 2022-01-24)
DX: S82.242A Displaced spiral fracture of shaft of left tibia, initial encounter for closed fracture (principal); R57.1 Hypovolemic shock; N17.9 Acute kidney failure, unspecified; E87.2 Acidosis; N18.4 Chronic kidney disease, stage 4 (severe); E87.5 Hyperkalemia; E86.0 Dehydration; S82.442A Displaced spiral fracture of shaft of left fibula, initial encounter for closed fracture; I95.9 Hypotension, unspecified; E86.1 Hypovolemia; F10.20 Alcohol dependence, uncomplicated; I12.9 Hypertensive chronic kidney disease with stage 1 through stage 4 chronic kidney disease, or unspecified chronic kidney disease; E11.22 Type 2 diabetes mellitus with diabetic chronic kidney disease; D63.1 Anemia in chronic kidney disease; K74.60 Unspecified cirrhosis of liver; F41.9 Anxiety disorder, unspecified; S01.01XA Laceration without foreign body of scalp, initial encounter; E78.5 Hyperlipidemia, unspecified; F17.210 Nicotine dependence, cigarettes, uncomplicated; G89.29 Other chronic pain; F32.A Depression, unspecified; J44.9 Chronic obstructive pulmonary disease, unspecified; W18.30XA Fall on same level, unspecified, initial encounter; E11.40 Type 2 diabetes mellitus with diabetic neuropathy, unspecified; Z20.822 Contact with and (suspected) exposure to COVID-19; Z98.890 Other specified postprocedural states; Z79.4 Long term (current) use of insulin; Z80.3 Family history of malignant neoplasm of breast; Z84.89 Family history of other specified conditions; Z79.84 Long term (current) use of oral hypoglycemic drugs; Z79.899 Other long term (current) drug therapy; Z71.6 Tobacco abuse counseling
CPT/HCPCS: 27752; 36415; 36416; 36556; 36600; 70450; 71045; 71250; 72125; 74177; 80048; 80053; 81001; 82306; 82533; 82550; 82805; 83605; 83880; 84100; 84145; 84484; 85025; 85610; 85730; 86850; 86900; 86901; 87040; 87086; 93005; 94664; 94760; 96365; 96366; 96367; 96375; C1713; J0610; J0690; J0692; J1170; J1650; J1815; J1885; J2270; J2405; J2704; J3010; J3490; J7611; J7999; S0028

== ENCOUNTER 2022-02-19 00:51 | Emergency (ER) | payer OTHER ==
[2022-02-19 01:26] LABS: Actual Bicarbonate (HCO3v) 27 mEq/L (22-28); Base Excess 1.9 mEq/L (-2.0 to +3.0); Calcium, Ionized (venous) 1.11 mmol/L (1.16-1.32); Chloride (VBG) 99 mmol/L (98-106); Critical Notified Whom: SPOMI; Hemoglobin (Hb) 14.5 g/dL (13.2-17.3); Potassium (VBG) 4.62 mmol/L (3.70-5.30); Puncture Site Other Site; Sodium 137.1 mmol/L (133-146); pH (venous) 7.42 (7.32-7.43)
[2022-02-19 01:40] LABS: Hemoglobin 13.9 g/dL (13.5-17.5); Mean Corpuscular HGB CONC 33.3 g/dL (32.0-36.0); Mean Corpuscular Hemoglobin 28.7 pg (27.0-33.0); Mean Corpuscular Volume 86.2 fl (81.2-95.1); Mean Platelet Volume 8.9 fl (7.4-10.4); Platelet Count 384 10x3/uL (150-450); RBC Distribution Width 13.9 % (11.5-14.5); Red Blood Cell (RBC) Count 4.84 10x6/uL (4.32-5.72); White Blood Cell (WBC) Count 4.9 10x3/uL (3.5-10.5)
[2022-02-19 01:40] LABS: Bilirubin Neg (Negative); Blood, Urine 10 (Negative); Clarity Clear (Clear); Glucose, Urine (Dipstick) >=1000 mg/dL (Negative); Ketone, Urine Negative (Negative); Leukocyte Negative (Negative); Nitrite Negative (Negative); Protein, Urine (Dipstick) Negative (Neg-Trace); Urobilinogen Normal mg/dL (Less than 2)
[2022-02-19 01:51] LABS: Bacteria/HPF None Seen HPF (None Seen); RBC/HPF 0-3 HPF (0-3); Squamous Epithelial 0-3 HPF (0-3); WBC/HPF 0-3 HPF (0-3)
[2022-02-19 01:56] LABS: ALT (SGPT) 29 U/L (8-55); AST (SGOT) 20 U/L (5-34); Albumin 4.2 g/dL (3.5-5.0); Alkaline Phosphatase 145 U/L (40-110); Anion Gap 18 mmol/L (10-20); BUN (Urea Nitrogen) 19 mg/dL (8.9-20.6); Bilirubin, Total 0.1 mg/dL (0.2-1.2); Calc. Creatinine Clearance 0 mL/min (70-130); Calcium 9.7 mg/dL (7.8-10.44); Carbon Dioxide 26 mmol/L (22-29); Chloride 97 mmol/L (98-107); Estimated GFR 88; Globulin 3.3 g/dL (2.4-3.5); Glucose 358 mg/dL (70-105); Lipase 34 U/L (8-78); Potassium 4.7 mmol/L (3.5-5.1); Protein, Total 7.5 g/dL (6.0-8.3); Sodium 136 mmol/L (136-145)
[2022-02-19] MEDS ORDERED: Ketorolac Tromethamine 30 MG/ML VIAL ONE (02:02)
[2022-02-19 02:07] LABS: MDiff Complete? YES
[2022-02-19 02:12] LABS: Band 8 % (5-11); Eosinophils 2 % (0-10); Lymphocytes 32 % (21-51); Monocytes 11 % (0-10); Neutrophil 46 % (42-75)
[2022-02-19 02:13] LABS: Platelet Morphology Comment Appears Adequate; RBC Morphology Normal
== END 2022-02-19 02:19 | disposition home or self-care (01) ==
LOC: CSHERS 00:51
DX: E11.65 Type 2 diabetes mellitus with hyperglycemia (principal); E11.40 Type 2 diabetes mellitus with diabetic neuropathy, unspecified; I10 Essential (primary) hypertension; E78.5 Hyperlipidemia, unspecified; F17.210 Nicotine dependence, cigarettes, uncomplicated; Z79.84 Long term (current) use of oral hypoglycemic drugs; Z79.899 Other long term (current) drug therapy
CPT/HCPCS: 36416; 71045; 80053; 81003; 81015; 82010; 82805; 83690; 84484; 85025; 96361; 96374; J1885

== ENCOUNTER 2022-04-09 12:29 | Inpatient (IN) | payer OTHER, MEDICAID ==
[2022-04-09 13:22] LABS: #Eosinphils 0.2 10x3/uL (0.0-0.5); #Monocytes 1.2 10x3/uL (0.0-1.1); #Neutrophils 9.7 10x3/uL (1.5-8.4); %Basophils 0.2 % (0.0-2.0); %Eosinophils 1.3 % (0.0-6.0); %Lymphocytes 13.1 % (18.0-47.0); %Neutrophils 75.8 % (40.0-75.0); Hemoglobin 16.5 g/dL (13.5-17.5); Mean Corpuscular HGB CONC 34.5 g/dL (32.0-36.0); Mean Corpuscular Hemoglobin 27.9 pg (27.0-33.0); Mean Corpuscular Volume 80.7 fl (81.2-95.1); Mean Platelet Volume 9.3 fl (7.4-10.4); Platelet Count 492 10x3/uL (150-450); RBC Distribution Width 13.3 % (11.5-14.5); Red Blood Cell (RBC) Count 5.92 10x6/uL (4.32-5.72); White Blood Cell (WBC) Count 12.7 10x3/uL (3.5-10.5)
[2022-04-09 13:41] LABS: ALT (SGPT) 18 U/L (8-55); AST (SGOT) 10 U/L (5-34); Albumin 4.8 g/dL (3.5-5.0); Alkaline Phosphatase 164 U/L (40-110); Anion Gap 29 mmol/L (10-20); BUN (Urea Nitrogen) 55 mg/dL (8.9-20.6); Bilirubin, Total 0.7 mg/dL (0.2-1.2); CK (CPK) 49 U/L (30-200); Calc. Creatinine Clearance 0 mL/min (70-130); Calcium 10.1 mg/dL (7.8-10.44); Carbon Dioxide 21 mmol/L (22-29); Chloride 81 mmol/L (98-107); Estimated GFR 11; Globulin 3.5 g/dL (2.4-3.5); Lipase 19 U/L (8-78); Potassium 5.2 mmol/L (3.5-5.1); Protein, Total 8.3 g/dL (6.0-8.3); Sodium 126 mmol/L (136-145)
[2022-04-09 13:52] LABS: Glucose 668 mg/dL (70-105)
[2022-04-09] MEDS ORDERED: Ondansetron PF 4 MG/2 ML Vial ONE ×2 (13:54→16:03)
[2022-04-09] MEDS ORDERED: Morphine 4 MG/ML VIAL ONE (13:55)
[2022-04-09 14:40] LABS: Actual Bicarbonate (HCO3v) 22 mEq/L (22-28); Calcium, Ionized (venous) 1.08 mmol/L (1.16-1.32); Chloride (VBG) 84 mmol/L (98-106); Hemoglobin (Hb) 16.9 g/dL (13.2-17.3); Puncture Site Other Site; RapidComm Collect By CBN; Sodium 127.4 mmol/L (133-146); pH (venous) 7.34 (7.32-7.43)
[2022-04-09] MEDS ORDERED: INSULIN REGULAR IN 0.9 % NACL 100 UNIT/100 ML BAG ONE (15:26)
[2022-04-09] MEDS ORDERED: Dextrose 5 %-0.45 % NaCl 1,000 ML IV PRN (15:35)
[2022-04-09] MEDS ORDERED: NS 0.9% w/ 20 MEQ KCL 1,000 ML IV PRN (15:35)
[2022-04-09] MEDS ORDERED: Sodium Chloride 0.9% 1,000 ML IV PRN ×3 (15:35)
[2022-04-09] MEDS ORDERED: Electrolyte Replacement Protocol 1 EACH IVPB PRN (15:35)
[2022-04-09] MEDS ORDERED: Senokot S 8.6-50 MG TAB PO PRN (15:38)
[2022-04-09] MEDS ORDERED: Acetaminophen 325 MG TAB PO PRN (15:38)
[2022-04-09] MEDS ORDERED: Guaifenesin DM 100-10/5 ML UDCUP PO PRN (15:38)
[2022-04-09 15:42] LABS: Bilirubin Neg (Negative); Blood, Urine 10 (Negative); Clarity Clear (Clear); Glucose, Urine (Dipstick) >=1000 mg/dL (Negative); Ketone, Urine 15 mg/dL (Negative); Leukocyte Negative (Negative); Nitrite Negative (Negative); Protein, Urine (Dipstick) 30 mg/dl (Neg-Trace); Specific Gravity, Urine 1.015 (1.002-1.036); Urobilinogen Normal mg/dL (Less than 2)
[2022-04-09 15:55] LABS: SARS-CoV-2 NAA Rapid Test Not Detected (NotDetected)
[2022-04-09] MEDS ORDERED: INSULIN REGULAR IN 0.9 % NACL 100 UNIT in Premix Bag 1 BAG IVPB SCH (16:00)
[2022-04-09] MEDS ORDERED: Morphine 2 MG/ML VIAL ONE (16:04)
[2022-04-09 16:09] LABS: Lactic Acid 2.1 mmol/L (0.5-2.2)
[2022-04-09] MEDS ORDERED: Dextrose 5% in Water 1,000 ML IV PRN (16:27)
[2022-04-09] MEDS ORDERED: Dextrose 50% Abboject 50 ML SYRINGE SLOW IVP PRN (16:27)
[2022-04-09 16:53] LABS: Anion Gap 21 mmol/L (10-20); BUN (Urea Nitrogen) 52 mg/dL (8.9-20.6); Calc. Creatinine Clearance 0 mL/min (70-130); Calcium 8.7 mg/dL (7.8-10.44); Carbon Dioxide 24 mmol/L (22-29); Chloride 89 mmol/L (98-107); Estimated GFR 14; Glucose 514 mg/dL (70-105); Potassium 4.8 mmol/L (3.5-5.1); Sodium 129 mmol/L (136-145)
[2022-04-09 16:58] LABS: Bacteria/HPF Rare-Few HPF (None Seen); Calcium Oxalate Crystals Rare HPF (None Seen); Mucous/LPF 1+ LPF (<2+); RBC/HPF 0-3 HPF (0-3); Renal Epithelial 0-3 HPF (None Seen); Squamous Epithelial 0-3 HPF (0-3); WBC/HPF 0-3 HPF (0-3)
[2022-04-09 17:20] VITALS: BMI 29.5
[2022-04-09 18:36] LABS: Bilirubin Neg (Negative); Blood, Urine 25 (Negative); Clarity Clear (Clear); Glucose, Urine (Dipstick) >=1000 mg/dL (Negative); Ketone, Urine 50 mg/dL (Negative); Leukocyte Negative (Negative); Nitrite Negative (Negative); Protein, Urine (Dipstick) 15 mg/dl (Neg-Trace); Urobilinogen Normal mg/dL (Less than 2)
[2022-04-09 18:40] LABS: Bacteria/HPF Rare-Few HPF (None Seen); RBC/HPF 0-3 HPF (0-3); Squamous Epithelial 0-3 HPF (0-3); WBC/HPF None Seen HPF (0-3)
[2022-04-09 18:41] LABS: Amphetamine Not Detected (NotDetected); Barbiturates Screen Not Detected (NotDetected); Benzodiazepine Screen Not Detected (NotDetected); Cocaine Metabolite Screen Not Detected (NotDetected); Methadone Not Detected (NotDetected); Methamphetamine Not Detected (NotDetected); Opiate Screen Detected (NotDetected); Oxycodone Screen Not Detected (NotDetected); Phencyclidine (PCP) Not Detected (NotDetected); THC/Cannabinoid Screen Detected (NotDetected); Tricyclic Screen Not Detected (NotDetected)
[2022-04-09 20:06] LABS: Anion Gap 17 mmol/L (10-20); BUN (Urea Nitrogen) 46 mg/dL (8.9-20.6); Calc. Creatinine Clearance 28 mL/min (70-130); Calcium 8.7 mg/dL (7.8-10.44); Carbon Dioxide 24 mmol/L (22-29); Chloride 97 mmol/L (98-107); Estimated GFR 18; Glucose 209 mg/dL (70-105); Potassium 4.1 mmol/L (3.5-5.1); Sodium 134 mmol/L (136-145)
[2022-04-09] MEDS: Ondansetron PF 4 MG/2 ML Vial IVP PRN (20:08)
[2022-04-09] MEDS: Famotidine/PF 20 mg/2ml Vial SLOW IVP SCH (20:09)
[2022-04-09] MEDS: D5 1/2 NS w/20 mEq KCL 1,000 ML IV PRN (22:17)
[2022-04-10 00:36] LABS: Anion Gap 14 mmol/L (10-20); BUN (Urea Nitrogen) 41 mg/dL (8.9-20.6); Calc. Creatinine Clearance 33 mL/min (70-130); Calcium 9.1 mg/dL (7.8-10.44); Carbon Dioxide 29 mmol/L (22-29); Chloride 97 mmol/L (98-107); Estimated GFR 22; Glucose 114 mg/dL (70-105); Sodium 136 mmol/L (136-145)
[2022-04-10] MEDS: D5 1/2 NS w/20 mEq KCL 1,000 ML IV PRN ×2 (02:23→06:05)
[2022-04-10] MEDS: Ondansetron PF 4 MG/2 ML Vial IVP PRN ×3 (02:37→16:49)
[2022-04-10] MEDS: HYDROcodone/Acetaminophen 5/325 mg Tablet PO PRN ×2 (02:37→21:00)
[2022-04-10 04:35] LABS: #Basophils 0.1 10x3/uL (0.0-0.2); #Eosinphils 0.1 10x3/uL (0.0-0.5); #Monocytes 1.5 10x3/uL (0.0-1.1); #Neutrophils 7.8 10x3/uL (1.5-8.4); %Basophils 0.4 % (0.0-2.0); %Eosinophils 0.9 % (0.0-6.0); %Lymphocytes 20.3 % (18.0-47.0); %Monocytes 12.3 % (0.0-10.0); %Neutrophils 65.8 % (40.0-75.0); Hemoglobin 14.2 g/dL (13.5-17.5); Mean Corpuscular HGB CONC 34.8 g/dL (32.0-36.0); Mean Corpuscular Hemoglobin 28.3 pg (27.0-33.0); Mean Corpuscular Volume 81.4 fl (81.2-95.1); Platelet Count 400 10x3/uL (150-450); RBC Distribution Width 13.5 % (11.5-14.5); Red Blood Cell (RBC) Count 5.01 10x6/uL (4.32-5.72); White Blood Cell (WBC) Count 11.8 10x3/uL (3.5-10.5)
[2022-04-10 04:59] LABS: Anion Gap 14 mmol/L (10-20); BUN (Urea Nitrogen) 35 mg/dL (8.9-20.6); Calc. Creatinine Clearance 39 mL/min (70-130); Carbon Dioxide 27 mmol/L (22-29); Chloride 96 mmol/L (98-107); Estimated GFR 26; Glucose 246 mg/dL (70-105); Magnesium 1.6 mg/dL (1.6-2.6); Phosphorus 3.2 mg/dL (2.3-4.7); Sodium 133 mmol/L (136-145)
[2022-04-10 06:37] LABS: Hemoglobin A1c 10.2 % (4.0-6.0)
[2022-04-10] MEDS: Lantus 1000 UNITS/10 ML VIAL SC SCH (09:22)
[2022-04-10] MEDS: Enoxaparin Sodium 40 MG/0.4 ML SYRINGE SC SCH (09:23)
[2022-04-10] MEDS: HumaLOG 300 UNITS/3 ML VIAL SC PRN ×2 (16:39→20:50)
[2022-04-10] MEDS: Famotidine/PF 20 mg/2ml Vial SLOW IVP SCH (21:51)
[2022-04-11 04:30] LABS: Anion Gap 16 mmol/L (10-20); BUN (Urea Nitrogen) 19 mg/dL (8.9-20.6); Calc. Creatinine Clearance 66 mL/min (70-130); Calcium 9.9 mg/dL (7.8-10.44); Carbon Dioxide 29 mmol/L (22-29); Chloride 100 mmol/L (98-107); Estimated GFR 48; Glucose 125 mg/dL (70-105); Potassium 4.7 mmol/L (3.5-5.1); Sodium 140 mmol/L (136-145)
[2022-04-11] MEDS ORDERED: Magnesium 2 GM/50 ML(in water) 2 GM in Premix Bag 1 BAG IVPB SCH (08:00)
[2022-04-11] MEDS: HumaLOG 300 UNITS/3 ML VIAL SC PRN (08:28)
[2022-04-11] MEDS ORDERED: Famotidine/PF 20 mg/2ml Vial SLOW IVP SCH (09:00)
[2022-04-11] MEDS: Enoxaparin Sodium 40 MG/0.4 ML SYRINGE SC SCH (09:17)
[2022-04-11] MEDS: Lantus 1000 UNITS/10 ML VIAL SC SCH (09:18)
== END 2022-04-11 10:00 | disposition home or self-care (01) | DRG 638 ==
LOC: CSHERS 12:29 → CSHICU 15:53
PROVIDERS: ADMIT Hospitalist; ATTEND Hospitalist
DX: E11.10 Type 2 diabetes mellitus with ketoacidosis without coma (principal); E87.1 Hypo-osmolality and hyponatremia; N17.9 Acute kidney failure, unspecified; Z20.822 Contact with and (suspected) exposure to COVID-19; E11.22 Type 2 diabetes mellitus with diabetic chronic kidney disease; F17.210 Nicotine dependence, cigarettes, uncomplicated; E87.5 Hyperkalemia; N18.30 Chronic kidney disease, stage 3 unspecified; I13.10 Hypertensive heart and chronic kidney disease without heart failure, with stage 1 through stage 4 chronic kidney disease, or unspecified chronic kidney disease; E86.0 Dehydration; E78.5 Hyperlipidemia, unspecified; F41.9 Anxiety disorder, unspecified; Z79.84 Long term (current) use of oral hypoglycemic drugs; Z79.899 Other long term (current) drug therapy
CPT/HCPCS: 36415; 36416; 71045; 74176; 80048; 80053; 80306; 81003; 81015; 82010; 82550; 82805; 83036; 83605; 83690; 83735; 83930; 84100; 84484; 85025; 87040; 93005; 94760; J1650; J1815; J2270; J2405; J3475; J3480; S0028; U0002

== ENCOUNTER 2022-06-25 02:18 | Inpatient (IN) | payer MEDICARE, OTHER ==
[2022-06-25 02:45] LABS: #Basophils 0.1 10x3/uL (0.0-0.2); #Eosinphils 0.1 10x3/uL (0.0-0.5); #Monocytes 1.5 10x3/uL (0.0-1.1); #Neutrophils 7.8 10x3/uL (1.5-8.4); %Basophils 0.5 % (0.0-2.0); %Eosinophils 1.1 % (0.0-6.0); %Lymphocytes 18.8 % (18.0-47.0); %Monocytes 12.5 % (0.0-10.0); %Neutrophils 66.8 % (40.0-75.0); Mean Corpuscular HGB CONC 34.1 g/dL (32.0-36.0); Mean Corpuscular Hemoglobin 28.5 pg (27.0-33.0); Mean Corpuscular Volume 83.5 fl (81.2-95.1); Mean Platelet Volume 8.5 fl (7.4-10.4); Platelet Count 416 10x3/uL (150-450); RBC Distribution Width 14.3 % (11.5-14.5); Red Blood Cell (RBC) Count 4.91 10x6/uL (4.32-5.72); White Blood Cell (WBC) Count 11.7 10x3/uL (3.5-10.5)
[2022-06-25] MEDS ORDERED: Ondansetron PF 4 MG/2 ML Vial ONE (02:52)
[2022-06-25] MEDS ORDERED: Morphine 4 MG/ML VIAL ONE (02:52)
[2022-06-25 03:00] LABS: ALT (SGPT) 12 U/L (8-55); AST (SGOT) 15 U/L (5-34); Albumin 4.5 g/dL (3.5-5.0); Alkaline Phosphatase 95 U/L (40-110); Anion Gap 19 mmol/L (10-20); BUN (Urea Nitrogen) 25 mg/dL (8.9-20.6); Bilirubin, Total 0.8 mg/dL (0.2-1.2); Calc. Creatinine Clearance 0 mL/min (70-130); Calcium 9.6 mg/dL (7.8-10.44); Carbon Dioxide 28 mmol/L (22-29); Chloride 91 mmol/L (98-107); Estimated GFR 55; Globulin 2.7 g/dL (2.4-3.5); Glucose 186 mg/dL (70-105); Lipase 89 U/L (8-78); Magnesium 1.4 mg/dL (1.6-2.6); Potassium 3.3 mmol/L (3.5-5.1); Protein, Total 7.2 g/dL (6.0-8.3); Sodium 135 mmol/L (136-145)
[2022-06-25 05:17] LABS: Bilirubin Neg (Negative); Blood, Urine Negative (Negative); Clarity Clear (Clear); Glucose, Urine (Dipstick) 100 mg/dL (Negative); Ketone, Urine 50 mg/dL (Negative); Leukocyte Negative (Negative); Nitrite Negative (Negative); Protein, Urine (Dipstick) Negative (Neg-Trace); Specific Gravity, Urine 1.015 (1.005-1.030); Urobilinogen Normal mg/dL (Less than 2)
[2022-06-25] MEDS ORDERED: HumaLOG 300 UNITS/3 ML VIAL SC PRN (05:34)
[2022-06-25] MEDS ORDERED: Dextrose 5% in Water 1,000 ML IV PRN (05:34)
[2022-06-25] MEDS ORDERED: Senokot S 8.6-50 MG TAB PO PRN (05:34)
[2022-06-25] MEDS ORDERED: Calcium Carbonate 500 MG ChewTAB PO PRN (05:34)
[2022-06-25] MEDS ORDERED: Dextrose 50% Abboject 50 ML SYRINGE SLOW IVP PRN (05:34)
[2022-06-25] MEDS ORDERED: Morphine 2 MG/ML VIAL SLOW IVP PRN (05:40)
[2022-06-25] MEDS ORDERED: Magnesium 2 GM/50 ML BAG (IN WATER) ONE (05:52)
[2022-06-25] MEDS ORDERED: Potassium Chloride 20 MEQ/100 ML PREMIX BAG ONE (05:52)
[2022-06-25] MEDS ORDERED: Magnesium 2 GM/50 ML(in water) 2 GM in Premix Bag 1 BAG IVPB SCH (06:00)
[2022-06-25] MEDS ORDERED: Lidocaine 2% Viscous Solution 10 ML, Aluminum & Magnesium Hydroxide 30 ML SSW SCH (06:00)
[2022-06-25] MEDS: Sodium Chloride 0.9% 1,000 ML IV SCH ×3 (06:01→22:32)
[2022-06-25] MEDS: Potassium Chloride 20 MEQ in Premix Bag 1 BAG IVPB SCH ×3 (06:01→09:40)
[2022-06-25] MEDS: Ondansetron PF 4 MG/2 ML Vial IVP PRN ×2 (08:26→16:34)
[2022-06-25] MEDS: Morphine 4 MG/ML VIAL SLOW IVP PRN ×4 (08:26→20:29)
[2022-06-25] MEDS ORDERED: Pantoprazole 40 MG VIAL IVP SCH (09:00)
[2022-06-25] MEDS ORDERED: Venlafaxine HCl XR 150 MG CAP PO SCH (09:00)
[2022-06-25] MEDS: Mometasone/Formoterol 200/5 60 PUFF INH SCH ×3 (09:25→18:40)
[2022-06-25] MEDS: Enoxaparin Sodium 40 MG/0.4 ML SYRINGE SC SCH ×2 (09:33→09:40)
[2022-06-25] MEDS: Lisinopril 20 MG TAB PO SCH ×2 (09:33→09:41)
[2022-06-25] MEDS: Thiamine 100 MG TAB PO SCH ×2 (09:33→09:41)
[2022-06-25] MEDS: Folic Acid 1 MG TAB PO SCH ×2 (09:33→09:41)
[2022-06-25] MEDS: Carvedilol 12.5 MG TAB PO SCH ×2 (09:33→09:41)
[2022-06-25] MEDS: Multivitamin W/ Minerals 1 TAB PO SCH ×2 (09:33→09:41)
[2022-06-25] MEDS: Venlafaxine HCl XR 75 MG CAP PO SCH ×2 (09:33→09:41)
[2022-06-25] MEDS: OXcarbazepine 300 MG TAB PO SCH (09:34)
[2022-06-25] MEDS ORDERED: Mag-Al 1200 mg/1200 mg/30 ML UDCUP PO SCH (10:00)
[2022-06-25 10:01] VITALS: BMI 32.1
[2022-06-25 10:39] LABS: Amphetamine Not Detected (NotDetected); Barbiturates Screen Not Detected (NotDetected); Benzodiazepine Screen Not Detected (NotDetected); Cocaine Metabolite Screen Not Detected (NotDetected); Methadone Not Detected (NotDetected); Methamphetamine Not Detected (NotDetected); Opiate Screen Detected (NotDetected); Oxycodone Screen Not Detected (NotDetected); Phencyclidine (PCP) Not Detected (NotDetected); THC/Cannabinoid Screen Detected (NotDetected); Tricyclic Screen Not Detected (NotDetected)
[2022-06-25] MEDS ORDERED: Prevnar 13-Val Conj/PF 0.5 ML SYRINGE IM ONE (10:45)
[2022-06-25 11:07] LABS: Magnesium 2.1 mg/dL (1.6-2.6); Potassium 3.9 mmol/L (3.5-5.1)
[2022-06-25] MEDS: Promethazine HCl 12.5 MG in Sodium Chloride 0.9% 50 ML IVPB PRN ×2 (11:44→18:25)
[2022-06-25] MEDS ORDERED: Nicotine 14 MG PATCH TD PRN (12:21)
[2022-06-25] MEDS: Pantoprazole 40 MG VIAL IVP SCH (20:26)
[2022-06-26] MEDS: Promethazine HCl 12.5 MG in Sodium Chloride 0.9% 50 ML IVPB PRN ×2 (00:05→07:32)
[2022-06-26] MEDS: Sodium Chloride 0.9% 1,000 ML IV SCH ×3 (00:34→08:58)
[2022-06-26] MEDS: Morphine 4 MG/ML VIAL SLOW IVP PRN ×4 (00:37→13:11)
[2022-06-26] MEDS: Ondansetron PF 4 MG/2 ML Vial IVP PRN (03:28)
[2022-06-26 04:27] LABS: #Basophils 0.1 10x3/uL (0.0-0.2); #Eosinphils 0.2 10x3/uL (0.0-0.5); #Monocytes 0.9 10x3/uL (0.0-1.1); #Neutrophils 4.6 10x3/uL (1.5-8.4); %Eosinophils 2.1 % (0.0-6.0); %Lymphocytes 28.5 % (18.0-47.0); %Monocytes 10.7 % (0.0-10.0); %Neutrophils 57.5 % (40.0-75.0); Mean Corpuscular HGB CONC 33.8 g/dL (32.0-36.0); Mean Corpuscular Hemoglobin 28.8 pg (27.0-33.0); Mean Corpuscular Volume 85.2 fl (81.2-95.1); Mean Platelet Volume 8.4 fl (7.4-10.4); Platelet Count 370 10x3/uL (150-450); RBC Distribution Width 14.4 % (11.5-14.5); Red Blood Cell (RBC) Count 4.52 10x6/uL (4.32-5.72)
[2022-06-26 04:31] LABS: ALT (SGPT) 11 U/L (8-55); AST (SGOT) 12 U/L (5-34); Albumin 3.8 g/dL (3.5-5.0); Alkaline Phosphatase 80 U/L (40-110); Anion Gap 14 mmol/L (10-20); BUN (Urea Nitrogen) 16 mg/dL (8.9-20.6); Bilirubin, Total 0.6 mg/dL (0.2-1.2); Calc. Creatinine Clearance 119 mL/min (70-130); Calcium 8.6 mg/dL (7.8-10.44); Carbon Dioxide 24 mmol/L (22-29); Chloride 102 mmol/L (98-107); Estimated GFR 91; Globulin 2.3 g/dL (2.4-3.5); Glucose 129 mg/dL (70-105); Lipase 23 U/L (8-78); Magnesium 1.7 mg/dL (1.6-2.6); Potassium 3.7 mmol/L (3.5-5.1); Protein, Total 6.1 g/dL (6.0-8.3); Sodium 136 mmol/L (136-145)
[2022-06-26] MEDS: Pantoprazole 40 MG VIAL IVP SCH (08:58)
[2022-06-26] MEDS: OXcarbazepine 300 MG TAB PO SCH (08:58)
[2022-06-26] MEDS: Carvedilol 12.5 MG TAB PO SCH (08:59)
[2022-06-26] MEDS: Mometasone/Formoterol 200/5 60 PUFF INH SCH (11:54)
[2022-06-26 12:57] VITALS: BP 124/77; TEMP 98.6
== END 2022-06-26 15:36 | disposition home or self-care (01) | DRG 439 ==
LOC: CSHERS 02:18 → CSHERHOLD 05:02 → OBSVTOIN 05:34 → CSHTELE 07:11
PROVIDERS: ADMIT Student in an Organized Health Care Education/Training Program; ATTEND Internal Medicine
DX: K85.90 Acute pancreatitis without necrosis or infection, unspecified (principal); R65.10 Systemic inflammatory response syndrome (SIRS) of non-infectious origin without acute organ dysfunction; K86.1 Other chronic pancreatitis; K74.60 Unspecified cirrhosis of liver; E11.9 Type 2 diabetes mellitus without complications; E78.5 Hyperlipidemia, unspecified; F41.9 Anxiety disorder, unspecified; E87.6 Hypokalemia; E83.42 Hypomagnesemia; I12.9 Hypertensive chronic kidney disease with stage 1 through stage 4 chronic kidney disease, or unspecified chronic kidney disease; E11.22 Type 2 diabetes mellitus with diabetic chronic kidney disease; N18.30 Chronic kidney disease, stage 3 unspecified; F32.A Depression, unspecified; E86.0 Dehydration; Z98.890 Other specified postprocedural states; Z79.899 Other long term (current) drug therapy; Z87.891 Personal history of nicotine dependence
CPT/HCPCS: 36415; 36416; 74176; 76705; 80053; 80306; 81003; 83690; 83735; 84484; 85025; 93005; 94664; 96361; 96374; 96375; C9113; J1650; J2270; J2405; J2550; J3475; J3480; J7050; U0003; U0005

== ENCOUNTER 2022-07-23 00:08 | Inpatient (IN) | payer OTHER ==
[2022-07-23] MEDS ORDERED: Ketorolac Tromethamine 30 MG/ML VIAL ONE (00:31)
[2022-07-23] MEDS ORDERED: Ondansetron PF 4 MG/2 ML Vial ONE (00:32)
[2022-07-23] MEDS ORDERED: Fentanyl 100 MCG/2 ML VIAL ONE (00:59)
[2022-07-23 01:31] LABS: #Eosinphils 0.1 10x3/uL (0.0-0.5); #Neutrophils 4.5 10x3/uL (1.5-8.4); %Basophils 0.5 % (0.0-2.0); %Eosinophils 1.6 % (0.0-6.0); %Lymphocytes 27.1 % (18.0-47.0); %Monocytes 12.7 % (0.0-10.0); %Neutrophils 57.8 % (40.0-75.0); Hemoglobin 12.4 g/dL (13.5-17.5); Mean Corpuscular Hemoglobin 29.2 pg (27.0-33.0); Mean Corpuscular Volume 85.9 fl (81.2-95.1); Platelet Count 332 10x3/uL (150-450); RBC Distribution Width 14.2 % (11.5-14.5); Red Blood Cell (RBC) Count 4.25 10x6/uL (4.32-5.72); White Blood Cell (WBC) Count 7.7 10x3/uL (3.5-10.5)
[2022-07-23] MEDS ORDERED: Piperacillin/Tazobactam 4.5 GM VIAL ONE (01:40)
[2022-07-23 01:41] LABS: SARS-CoV-2 NAA Rapid Test Not Detected (NotDetected)
[2022-07-23 01:46] LABS: Albumin 3.6 g/dL (3.5-5.0); Anion Gap 13 mmol/L (10-20); BUN (Urea Nitrogen) 57 mg/dL (8.9-20.6); Bilirubin, Total 0.3 mg/dL (0.2-1.2); Calc. Creatinine Clearance 0 mL/min (70-130); Calcium 7.9 mg/dL (7.8-10.44); Carbon Dioxide 25 mmol/L (22-29); Chloride 96 mmol/L (98-107); Estimated GFR 36; Glucose 355 mg/dL (70-105); Potassium 3.8 mmol/L (3.5-5.1); Protein, Total 5.7 g/dL (6.0-8.3); Sodium 130 mmol/L (136-145)
[2022-07-23 01:47] LABS: ALT (SGPT) 12 U/L (8-55); AST (SGOT) 8 U/L (5-34); Alkaline Phosphatase 57 U/L (40-110); Globulin 2.1 g/dL (2.4-3.5); Lipase 23 U/L (8-78); Magnesium 1.7 mg/dL (1.6-2.6)
[2022-07-23] MEDS ORDERED: NOREPINEPHRINE 8 MG/250 ML-D5W 250 ML ONE (01:56)
[2022-07-23] MEDS ORDERED: Midazolam HCl 2 mg/2 ml Vial ONE (01:56)
[2022-07-23 03:01] LABS: Actual Bicarbonate (HCO3v) 26 mEq/L (22-28); Calcium, Ionized (venous) 1.07 mmol/L (1.16-1.32); Chloride (VBG) 97 mmol/L (98-106); Critical Notified By: CP.PH; Hemoglobin (Hb) 14.2 g/dL (13.2-17.3); Potassium (VBG) 4.33 mmol/L (3.70-5.30); Puncture Site Other Site; RapidComm Collect By LAB.YY; Sodium 132.8 mmol/L (133-146); pH (venous) 7.26 (7.32-7.43)
[2022-07-23 03:04] LABS: Bilirubin Neg (Negative); Blood, Urine Negative (Negative); Clarity Clear (Clear); Glucose, Urine (Dipstick) >=1000 mg/dL (Negative); Ketone, Urine Negative (Negative); Leukocyte 25 (Negative); Nitrite Negative (Negative); Protein, Urine (Dipstick) 15 mg/dl (Neg-Trace); Urobilinogen Normal mg/dL (Less than 2)
[2022-07-23 03:16] LABS: Bacteria/HPF Rare-Few HPF (None Seen); RBC/HPF 0-3 HPF (0-3); Squamous Epithelial 0-3 HPF (0-3); WBC/HPF 0-3 HPF (0-3)
[2022-07-23] MEDS ORDERED: Ondansetron PF 4 MG/2 ML Vial IVP PRN (04:23)
[2022-07-23] MEDS ORDERED: Morphine 4 MG/ML VIAL SLOW IVP PRN (04:29)
[2022-07-23] MEDS ORDERED: HumaLOG 300 UNITS/3 ML VIAL SC PRN (04:31)
[2022-07-23] MEDS ORDERED: Dextrose 50% Abboject 50 ML SYRINGE SLOW IVP PRN (04:31)
[2022-07-23] MEDS ORDERED: Dextrose 5% in Water 1,000 ML IV PRN (04:31)
[2022-07-23] MEDS ORDERED: NOREPINEPHRINE 8 MG/250 ML-D5W 250 ML IVPB SCH (05:00)
[2022-07-23] MEDS: Lactated Ringer's 1,000 ML IV SCH ×3 (05:06→15:15)
[2022-07-23 05:16] LABS: Amphetamine Not Detected (NotDetected); Barbiturates Screen Not Detected (NotDetected); Benzodiazepine Screen Not Detected (NotDetected); Cocaine Metabolite Screen Not Detected (NotDetected); Methadone Not Detected (NotDetected); Methamphetamine Not Detected (NotDetected); Opiate Screen Not Detected (NotDetected); Oxycodone Screen Not Detected (NotDetected); Phencyclidine (PCP) Not Detected (NotDetected); THC/Cannabinoid Screen Detected (NotDetected); Tricyclic Screen Detected (NotDetected)
[2022-07-23] MEDS: Potassium Chloride 20 MEQ in Premix Bag 1 BAG IVPB SCH ×2 (05:59→08:01)
[2022-07-23 07:52] LABS: #Basophils 0.1 10x3/uL (0.0-0.2); #Eosinphils 0.2 10x3/uL (0.0-0.5); #Monocytes 0.9 10x3/uL (0.0-1.1); #Neutrophils 4.5 10x3/uL (1.5-8.4); %Basophils 0.7 % (0.0-2.0); %Eosinophils 2.4 % (0.0-6.0); %Lymphocytes 26.5 % (18.0-47.0); %Monocytes 11.8 % (0.0-10.0); %Neutrophils 58.3 % (40.0-75.0); Hemoglobin 12.7 g/dL (13.5-17.5); Mean Corpuscular HGB CONC 34.6 g/dL (32.0-36.0); Mean Corpuscular Hemoglobin 29.4 pg (27.0-33.0); Mean Platelet Volume 9.1 fl (7.4-10.4); Platelet Count 351 10x3/uL (150-450); RBC Distribution Width 14.4 % (11.5-14.5); Red Blood Cell (RBC) Count 4.32 10x6/uL (4.32-5.72); White Blood Cell (WBC) Count 7.6 10x3/uL (3.5-10.5)
[2022-07-23 08:04] LABS: Anion Gap 12 mmol/L (10-20); BUN (Urea Nitrogen) 50 mg/dL (8.9-20.6); Calc. Creatinine Clearance 58 mL/min (70-130); Calcium 8.7 mg/dL (7.8-10.44); Carbon Dioxide 28 mmol/L (22-29); Chloride 101 mmol/L (98-107); Estimated GFR 38; Glucose 215 mg/dL (70-105); Magnesium 1.9 mg/dL (1.6-2.6); Potassium 4.6 mmol/L (3.5-5.1); Sodium 136 mmol/L (136-145)
[2022-07-23] MEDS: Enoxaparin Sodium 40 MG/0.4 ML SYRINGE SC SCH (08:23)
[2022-07-23] MEDS ORDERED: Lantus 1000 UNITS/10 ML VIAL SC SCH ×2 (09:00→21:00)
[2022-07-23] MEDS ORDERED: Famotidine/PF 20 mg/2ml Vial SLOW IVP SCH (09:00)
[2022-07-23 13:10] LABS: Alcohol Less than 10 mg/dL (Less than 10); Magnesium 1.7 mg/dL (1.6-2.6); Phosphorus 3.4 mg/dL (2.3-4.7)
[2022-07-23] MEDS ORDERED: Iopamidol 300 61% 100 ML VIAL FS ONE (14:18)
[2022-07-23] MEDS ORDERED: Electrolyte Replacement Protocol 1 EACH FS SCH (18:15)
[2022-07-23] MEDS ORDERED: Magnesium 2 GM/50 ML(in water) 2 GM in Premix Bag 1 BAG IVPB SCH (18:45)
[2022-07-24] MEDS: Lactated Ringer's 1,000 ML IV SCH ×3 (00:46→20:46)
[2022-07-24 04:40] LABS: ALT (SGPT) 14 U/L (8-55); AST (SGOT) 14 U/L (5-34); Albumin 3.5 g/dL (3.5-5.0); Alkaline Phosphatase 59 U/L (40-110); Anion Gap 11 mmol/L (10-20); BUN (Urea Nitrogen) 30 mg/dL (8.9-20.6); Bilirubin, Total 0.3 mg/dL (0.2-1.2); Calc. Creatinine Clearance 79 mL/min (70-130); Calcium 8.5 mg/dL (7.8-10.44); Carbon Dioxide 27 mmol/L (22-29); Chloride 106 mmol/L (98-107); Estimated GFR 56; Glucose 103 mg/dL (70-105); Potassium 4.7 mmol/L (3.5-5.1); Protein, Total 5.5 g/dL (6.0-8.3); Sodium 139 mmol/L (136-145)
[2022-07-24 05:09] VITALS: BMI 32.5
[2022-07-24] MEDS ORDERED: Magnesium 2 GM/50 ML(in water) 2 GM in Premix Bag 1 BAG IVPB SCH (06:00)
[2022-07-24] MEDS: Enoxaparin Sodium 40 MG/0.4 ML SYRINGE SC SCH (08:04)
[2022-07-24] MEDS: Thiamine 100 MG TAB PO SCH (08:05)
[2022-07-24] MEDS: Folic Acid 1 MG TAB PO SCH (08:05)
[2022-07-24] MEDS ORDERED: Famotidine/PF 20 mg/2ml Vial SLOW IVP SCH (09:00)
[2022-07-24] MEDS ORDERED: Lantus 1000 UNITS/10 ML VIAL SC SCH ×2 (09:00)
[2022-07-24 12:56] LABS: Hemoglobin A1c 7.5 % (4.0-6.0)
[2022-07-24] MEDS: Famotidine 20 MG TAB PO SCH (20:26)
[2022-07-24] MEDS ORDERED: traZODone HCl 50 MG TAB PO SCH (21:00)
[2022-07-25 05:45] LABS: ALT (SGPT) 15 U/L (8-55); AST (SGOT) 12 U/L (5-34); Albumin 3.8 g/dL (3.5-5.0); Alkaline Phosphatase 66 U/L (40-110); Anion Gap 12 mmol/L (10-20); BUN (Urea Nitrogen) 21 mg/dL (8.9-20.6); Bilirubin, Total 0.3 mg/dL (0.2-1.2); Calc. Creatinine Clearance 79 mL/min (70-130); Calcium 9.1 mg/dL (7.8-10.44); Carbon Dioxide 27 mmol/L (22-29); Chloride 105 mmol/L (98-107); Estimated GFR 55; Globulin 2.3 g/dL (2.4-3.5); Glucose 147 mg/dL (70-105); Magnesium 1.9 mg/dL (1.6-2.6); Potassium 4.7 mmol/L (3.5-5.1); Protein, Total 6.1 g/dL (6.0-8.3); Sodium 139 mmol/L (136-145)
[2022-07-25] MEDS ORDERED: Magnesium 2 GM/50 ML(in water) 2 GM in Premix Bag 1 BAG IVPB SCH (06:00)
[2022-07-25 08:46] VITALS: BP 159/89; TEMP 98
[2022-07-25] MEDS: Enoxaparin Sodium 40 MG/0.4 ML SYRINGE SC SCH (08:46)
[2022-07-25] MEDS: Thiamine 100 MG TAB PO SCH (08:47)
[2022-07-25] MEDS: Folic Acid 1 MG TAB PO SCH (08:47)
[2022-07-25] MEDS: Famotidine 20 MG TAB PO SCH (08:47)
[2022-07-25] MEDS ORDERED: NALTREXONE HCL 50 MG PO SCH (09:00)
== END 2022-07-25 14:15 | disposition home or self-care (01) | DRG 682 ==
LOC: CSHERS 00:08 → CSHICU 04:10 → CSHTELE 07-24 16:23
PROVIDERS: ADMIT Family Medicine; ATTEND Family Medicine
PROC: 02HV33Z Insertion of Infusion Device into Superior Vena Cava, Percutaneous Approach (ICD-10-PCS; principal; 2022-07-23)
PROC: 3E043XZ Introduction of Vasopressor into Central Vein, Percutaneous Approach (ICD-10-PCS; 2022-07-23)
DX: N17.9 Acute kidney failure, unspecified (principal); R57.1 Hypovolemic shock; K86.1 Other chronic pancreatitis; K74.60 Unspecified cirrhosis of liver; E11.22 Type 2 diabetes mellitus with diabetic chronic kidney disease; R11.10 Vomiting, unspecified; F17.210 Nicotine dependence, cigarettes, uncomplicated; F10.20 Alcohol dependence, uncomplicated; F12.10 Cannabis abuse, uncomplicated; N18.9 Chronic kidney disease, unspecified; I12.9 Hypertensive chronic kidney disease with stage 1 through stage 4 chronic kidney disease, or unspecified chronic kidney disease; F41.9 Anxiety disorder, unspecified; E86.9 Volume depletion, unspecified; Z79.4 Long term (current) use of insulin; Z79.84 Long term (current) use of oral hypoglycemic drugs; Z98.890 Other specified postprocedural states; Z79.899 Other long term (current) drug therapy; Z80.3 Family history of malignant neoplasm of breast; Z20.822 Contact with and (suspected) exposure to COVID-19
CPT/HCPCS: 36415; 36416; 36556; 71045; 74177; 80053; 80306; 80307; 81003; 81015; 82805; 83036; 83605; 83690; 83735; 84100; 84145; 84484; 85025; 86850; 86900; 86901; 87040; 87077; 87086; 87149; 93005; 96361; 96374; 96375; J1650; J1815; J1885; J2250; J2270; J2405; J2543; J3010; J3475; J3480; J7120; Q9967; S0028; U0002

== ENCOUNTER 2022-07-31 16:22 | Inpatient (IN) | payer OTHER ==
[2022-07-31 17:02] LABS: #Basophils 0.1 10x3/uL (0.0-0.2); #Eosinphils 0.2 10x3/uL (0.0-0.5); #Monocytes 1.4 10x3/uL (0.0-1.1); #Neutrophils 6.4 10x3/uL (1.5-8.4); %Basophils 0.7 % (0.0-2.0); %Eosinophils 1.4 % (0.0-6.0); %Lymphocytes 24.3 % (18.0-47.0); %Monocytes 13.4 % (0.0-10.0); %Neutrophils 59.8 % (40.0-75.0); Hemoglobin 13.7 g/dL (13.5-17.5); Mean Corpuscular HGB CONC 34.3 g/dL (32.0-36.0); Mean Corpuscular Hemoglobin 29.2 pg (27.0-33.0); Mean Corpuscular Volume 85.1 fl (81.2-95.1); Mean Platelet Volume 8.9 fl (7.4-10.4); Platelet Count 374 10x3/uL (150-450); Red Blood Cell (RBC) Count 4.69 10x6/uL (4.32-5.72); White Blood Cell (WBC) Count 10.7 10x3/uL (3.5-10.5)
[2022-07-31 17:28] LABS: ALT (SGPT) 13 U/L (8-55); AST (SGOT) 10 U/L (5-34); Alkaline Phosphatase 65 U/L (40-110); Anion Gap 19 mmol/L (10-20); BUN (Urea Nitrogen) 58 mg/dL (8.9-20.6); Bilirubin, Total 0.3 mg/dL (0.2-1.2); Calc. Creatinine Clearance 0 mL/min (70-130); Calcium 8.6 mg/dL (7.8-10.44); Carbon Dioxide 26 mmol/L (22-29); Chloride 93 mmol/L (98-107); Estimated GFR 10; Globulin 2.3 g/dL (2.4-3.5); Glucose 242 mg/dL (70-105); Lipase 15 U/L (8-78); Potassium 3.9 mmol/L (3.5-5.1); Protein, Total 6.3 g/dL (6.0-8.3); Sodium 134 mmol/L (136-145)
[2022-07-31 17:29] LABS: Acetaminophen Less than 10.0 mcg/mL (10.0-30.0); Alcohol Less than 10 mg/dL (Less than 10); CK (CPK) 277 U/L (30-200); Salicylate Less than 8.0 mg/dL (15.0-30.0)
[2022-07-31 17:30] LABS: SARS-CoV-2 NAA Rapid Test Not Detected (NotDetected)
[2022-07-31] MEDS ORDERED: Vancomycin 1 GM VIAL ONE (17:36)
[2022-07-31] MEDS ORDERED: Piperacillin/Tazobactam 4.5 GM VIAL ONE (19:22)
[2022-07-31 19:41] LABS: Bilirubin Neg (Negative); Blood, Urine 10 (Negative); Clarity Slightly Cloudy (Clear); Glucose, Urine (Dipstick) Normal (Negative); Ketone, Urine Negative (Negative); Leukocyte Negative (Negative); Nitrite Negative (Negative); Protein, Urine (Dipstick) 30 mg/dl (Neg-Trace); Specific Gravity, Urine 1.015 (1.005-1.030); Urobilinogen Normal mg/dL (Less than 2)
[2022-07-31 20:02] LABS: RBC/HPF 0-3 HPF (0-3); Squamous Epithelial 0-3 HPF (0-3); WBC/HPF 0-3 HPF (0-3)
[2022-07-31 20:03] LABS: Bacteria/HPF None Seen HPF (None Seen); Sperm/HPF Rare HPF (None Seen)
[2022-07-31] MEDS ORDERED: Ondansetron PF 4 MG/2 ML Vial IVP PRN (20:09)
[2022-07-31] MEDS ORDERED: Acetaminophen 325 MG TAB PO PRN (20:15)
[2022-07-31] MEDS ORDERED: Senokot S 8.6-50 MG TAB PO PRN (20:15)
[2022-07-31 20:18] LABS: Lactic Acid 1.9 mmol/L (0.5-2.2)
[2022-07-31] MEDS ORDERED: Ventolin HFA Inhaler 60 PUFF INHALER INH PRN (20:20)
[2022-07-31] MEDS ORDERED: Dextrose 50% Abboject 50 ML SYRINGE SLOW IVP PRN (20:28)
[2022-07-31] MEDS ORDERED: Dextrose 5% in Water 1,000 ML IV PRN (20:28)
[2022-07-31] MEDS ORDERED: Ondansetron PF 4 MG/2 ML Vial ONE (21:00)
[2022-07-31] MEDS ORDERED: HYDROcodone/Acetaminophen 5/325 mg Tablet ONE (21:01)
[2022-07-31] MEDS: Famotidine 20 MG TAB PO SCH (22:15)
[2022-07-31] MEDS: Heparin 5,000 UNITS/ML VIAL SC SCH (22:16)
[2022-07-31] MEDS: Nicotine 21 MG PATCH TD SCH (22:17)
[2022-07-31] MEDS: Dextrose 5 %-0.45 % NaCl 1,000 ML IV SCH (22:18)
[2022-07-31 22:34] VITALS: BMI 32.1
[2022-07-31 22:54] LABS: Amphetamine Not Detected (NotDetected); Barbiturates Screen Not Detected (NotDetected); Benzodiazepine Screen Not Detected (NotDetected); Cocaine Metabolite Screen Not Detected (NotDetected); Methadone Not Detected (NotDetected); Methamphetamine Not Detected (NotDetected); Opiate Screen Not Detected (NotDetected); Oxycodone Screen Not Detected (NotDetected); Phencyclidine (PCP) Not Detected (NotDetected); THC/Cannabinoid Screen Detected (NotDetected); Tricyclic Screen Detected (NotDetected)
[2022-08-01 04:12] LABS: #Basophils 0.1 10x3/uL (0.0-0.2); #Eosinphils 0.2 10x3/uL (0.0-0.5); #Monocytes 0.8 10x3/uL (0.0-1.1); %Basophils 0.7 % (0.0-2.0); %Eosinophils 3.5 % (0.0-6.0); %Lymphocytes 39.7 % (18.0-47.0); %Monocytes 11.9 % (0.0-10.0); %Neutrophils 44.1 % (40.0-75.0); Hemoglobin 12.3 g/dL (13.5-17.5); Mean Corpuscular HGB CONC 33.8 g/dL (32.0-36.0); Mean Corpuscular Hemoglobin 28.8 pg (27.0-33.0); Mean Corpuscular Volume 85.2 fl (81.2-95.1); Mean Platelet Volume 8.6 fl (7.4-10.4); Platelet Count 315 10x3/uL (150-450); RBC Distribution Width 14.2 % (11.5-14.5); Red Blood Cell (RBC) Count 4.27 10x6/uL (4.32-5.72); White Blood Cell (WBC) Count 6.9 10x3/uL (3.5-10.5)
[2022-08-01 04:44] LABS: Anion Gap 16 mmol/L (10-20); BUN (Urea Nitrogen) 51 mg/dL (8.9-20.6); Calc. Creatinine Clearance 28 mL/min (70-130); Calcium 8.2 mg/dL (7.8-10.44); Carbon Dioxide 23 mmol/L (22-29); Chloride 103 mmol/L (98-107); Estimated GFR 16; Glucose 99 mg/dL (70-105); Potassium 3.9 mmol/L (3.5-5.1); Sodium 138 mmol/L (136-145)
[2022-08-01] MEDS: Heparin 5,000 UNITS/ML VIAL SC SCH ×3 (09:28→21:24)
[2022-08-01] MEDS: Gabapentin 300 MG CAP PO SCH ×3 (09:30→21:21)
[2022-08-01] MEDS: Venlafaxine HCl XR 75 MG CAP PO SCH (09:31)
[2022-08-01] MEDS: Thiamine 100 MG TAB PO SCH (09:31)
[2022-08-01] MEDS: Dextrose 5 %-0.45 % NaCl 1,000 ML IV SCH (09:49)
[2022-08-01] MEDS: HumaLOG 300 UNITS/3 ML VIAL SC PRN ×2 (14:33→21:27)
[2022-08-01] MEDS: HYDROcodone/Acetaminophen 5/325 mg Tablet PO PRN (14:40)
[2022-08-01] MEDS: traZODone HCl 50 MG TAB PO SCH (21:22)
[2022-08-01] MEDS: Famotidine 20 MG TAB PO SCH (21:22)
[2022-08-01] MEDS: Nicotine 21 MG PATCH TD SCH (21:22)
[2022-08-02] MEDS ORDERED: Ventolin HFA Inhaler 60 PUFF INHALER ONE (07:43)
[2022-08-02] MEDS: Thiamine 100 MG TAB PO SCH (09:10)
[2022-08-02] MEDS: OXcarbazepine 300 MG TAB PO SCH (09:11)
[2022-08-02] MEDS: Venlafaxine HCl XR 75 MG CAP PO SCH (09:11)
[2022-08-02] MEDS: Gabapentin 300 MG CAP PO SCH ×3 (09:11→20:54)
[2022-08-02] MEDS: Heparin 5,000 UNITS/ML VIAL SC SCH ×3 (09:12→20:54)
[2022-08-02 09:42] LABS: Anion Gap 13 mmol/L (10-20); BUN (Urea Nitrogen) 37 mg/dL (8.9-20.6); Calc. Creatinine Clearance 58 mL/min (70-130); Calcium 8.4 mg/dL (7.8-10.44); Carbon Dioxide 26 mmol/L (22-29); Chloride 101 mmol/L (98-107); Estimated GFR 38; Glucose 185 mg/dL (70-105); Potassium 4.4 mmol/L (3.5-5.1); Sodium 136 mmol/L (136-145)
[2022-08-02] MEDS: Sodium Chloride 0.9% 1,000 ML IV SCH (13:20)
[2022-08-02] MEDS: HumaLOG 300 UNITS/3 ML VIAL SC PRN ×2 (17:16→20:53)
[2022-08-02] MEDS: Famotidine 20 MG TAB PO SCH (20:55)
[2022-08-02] MEDS: traZODone HCl 50 MG TAB PO SCH (20:55)
[2022-08-02] MEDS: Nicotine 21 MG PATCH TD SCH (21:09)
[2022-08-03] MEDS: Sodium Chloride 0.9% 1,000 ML IV SCH (05:03)
[2022-08-03] MEDS: HumaLOG 300 UNITS/3 ML VIAL SC PRN (06:11)
[2022-08-03] MEDS: Gabapentin 300 MG CAP PO SCH (09:45)
[2022-08-03] MEDS: OXcarbazepine 300 MG TAB PO SCH (09:45)
[2022-08-03] MEDS: Thiamine 100 MG TAB PO SCH (09:45)
[2022-08-03] MEDS: Venlafaxine HCl XR 75 MG CAP PO SCH (09:45)
[2022-08-03] MEDS: Heparin 5,000 UNITS/ML VIAL SC SCH (09:46)
[2022-08-03 09:58] LABS: Anion Gap 12 mmol/L (10-20); BUN (Urea Nitrogen) 23 mg/dL (8.9-20.6); Calc. Creatinine Clearance 82 mL/min (70-130); Calcium 8.6 mg/dL (7.8-10.44); Carbon Dioxide 24 mmol/L (22-29); Chloride 107 mmol/L (98-107); Estimated GFR 58; Glucose 126 mg/dL (70-105); Potassium 4.6 mmol/L (3.5-5.1); Sodium 138 mmol/L (136-145)
[2022-08-03] MEDS ORDERED: Famotidine 20 MG TAB PO SCH ×2 (10:30→21:00)
[2022-08-03] MEDS: HYDROcodone/Acetaminophen 5/325 mg Tablet PO PRN (13:01)
[2022-08-03 13:45] VITALS: BP 113/69; TEMP 97.3
== END 2022-08-03 13:30 | disposition home or self-care (01) | DRG 683 ==
LOC: CSHERS 16:22 → CSHTELE 21:59 → OBSVTOIN 08-01 14:14
PROVIDERS: ADMIT Student in an Organized Health Care Education/Training Program; ATTEND Internal Medicine
DX: N17.9 Acute kidney failure, unspecified (principal); E87.21 Acute metabolic acidosis; E86.0 Dehydration; F41.9 Anxiety disorder, unspecified; F32.A Depression, unspecified; J44.9 Chronic obstructive pulmonary disease, unspecified; E11.22 Type 2 diabetes mellitus with diabetic chronic kidney disease; F17.210 Nicotine dependence, cigarettes, uncomplicated; I12.9 Hypertensive chronic kidney disease with stage 1 through stage 4 chronic kidney disease, or unspecified chronic kidney disease; R11.10 Vomiting, unspecified; R19.7 Diarrhea, unspecified; N18.9 Chronic kidney disease, unspecified; K74.60 Unspecified cirrhosis of liver; K21.9 Gastro-esophageal reflux disease without esophagitis; Z20.822 Contact with and (suspected) exposure to COVID-19; Z79.899 Other long term (current) drug therapy; Z79.51 Long term (current) use of inhaled steroids; Z98.890 Other specified postprocedural states; Z80.3 Family history of malignant neoplasm of breast
CPT/HCPCS: 36415; 36416; 71045; 80048; 80053; 80306; 80307; 81003; 81015; 82550; 83605; 83690; 84484; 85025; 87040; 87324; 87449; 93005; 94664; 94760; 96361; 96365; 96366; 96372; 96375; G0378; J1644; J1815; J2405; J2543; J3370; J7042; J7050

== ENCOUNTER 2022-09-08 02:18 | Inpatient (IN) | payer OTHER, MEDICAID ==
[2022-09-08] MEDS ORDERED: Ondansetron PF 4 MG/2 ML Vial ONE ×3 (02:35→13:17)
[2022-09-08] MEDS ORDERED: Morphine 4 MG/ML VIAL ONE ×3 (02:35→13:17)
[2022-09-08 02:47] LABS: #Monocytes 0.8 10x3/uL (0.0-1.1); #Neutrophils 13.4 10x3/uL (1.5-8.4); %Basophils 0.2 % (0.0-2.0); %Eosinophils 0.1 % (0.0-6.0); %Lymphocytes 3.8 % (18.0-47.0); %Monocytes 5.3 % (0.0-10.0); %Neutrophils 90.3 % (40.0-75.0); Hemoglobin 15.8 g/dL (13.5-17.5); Mean Corpuscular Hemoglobin 29.2 pg (27.0-33.0); Platelet Count 570 10x3/uL (150-450); Red Blood Cell (RBC) Count 5.42 10x6/uL (4.32-5.72); White Blood Cell (WBC) Count 14.8 10x3/uL (3.5-10.5)
[2022-09-08] MEDS ORDERED: Haloperidol Lactate 5 MG/ML VIAL ONE (03:01)
[2022-09-08 03:04] LABS: ALT (SGPT) 166 U/L (8-55); AST (SGOT) 32 U/L (5-34); Albumin 5.5 g/dL (3.5-5.0); Alkaline Phosphatase 117 U/L (40-110); Anion Gap 30 mmol/L (10-20); BUN (Urea Nitrogen) 83 mg/dL (8.9-20.6); Bilirubin, Total 0.8 mg/dL (0.2-1.2); Calc. Creatinine Clearance 0 mL/min (70-130); Calcium 10.9 mg/dL (7.8-10.44); Carbon Dioxide 26 mmol/L (22-29); Chloride 86 mmol/L (98-107); Estimated GFR 12; Globulin 3.2 g/dL (2.4-3.5); Lipase 15 U/L (8-78); Potassium 4.7 mmol/L (3.5-5.1); Protein, Total 8.7 g/dL (6.0-8.3); Sodium 137 mmol/L (136-145)
[2022-09-08 03:22] LABS: Glucose 489 mg/dL (70-105)
[2022-09-08] MEDS ORDERED: INSULIN REGULAR IN 0.9 % NACL 100 UNIT/100 ML BAG ONE (03:32)
[2022-09-08 03:41] LABS: Actual Bicarbonate (HCO3v) 28 mEq/L (22-28); Base Excess 1.3 mEq/L (-2.0 to +3.0); Calcium, Ionized (venous) 1.06 mmol/L (1.16-1.32); Chloride (VBG) 89 mmol/L (98-106); Critical Notified By: CP.PH; Hemoglobin (Hb) 15.2 g/dL (13.2-17.3); Potassium (VBG) 4.62 mmol/L (3.70-5.30); Puncture Site Other Site; Sodium 134.5 mmol/L (133-146); pH (venous) 7.35 (7.32-7.43)
[2022-09-08] MEDS ORDERED: NS 0.9% w/ 20 MEQ KCL 1,000 ML ONE (04:12)
[2022-09-08 04:20] LABS: Bilirubin Neg (Negative); Blood, Urine 25 (Negative); Clarity Clear (Clear); Glucose, Urine (Dipstick) >=1000 mg/dL (Negative); Ketone, Urine 15 mg/dL (Negative); Leukocyte Negative (Negative); Nitrite Negative (Negative); Protein, Urine (Dipstick) 30 mg/dl (Neg-Trace); Urobilinogen Normal mg/dL (Less than 2)
[2022-09-08 04:33] LABS: Bacteria/HPF Rare-Few HPF (None Seen); RBC/HPF 0-3 HPF (0-3); Squamous Epithelial None Seen HPF (0-3)
[2022-09-08 04:36] LABS: Amphetamine Not Detected (NotDetected); Barbiturates Screen Not Detected (NotDetected); Benzodiazepine Screen Not Detected (NotDetected); Cocaine Metabolite Screen Not Detected (NotDetected); Methadone Not Detected (NotDetected); Methamphetamine Not Detected (NotDetected); Opiate Screen Detected (NotDetected); Oxycodone Screen Not Detected (NotDetected); Phencyclidine (PCP) Not Detected (NotDetected); THC/Cannabinoid Screen Detected (NotDetected); Tricyclic Screen Detected (NotDetected)
[2022-09-08] MEDS ORDERED: Sodium Chloride 0.9% 1,000 ML IV PRN ×4 (04:40)
[2022-09-08] MEDS ORDERED: D5 1/2 NS w/20 mEq KCL 1,000 ML IV PRN (04:40)
[2022-09-08] MEDS ORDERED: NS 0.9% w/ 20 MEQ KCL 1,000 ML IV PRN ×2 (04:40)
[2022-09-08] MEDS ORDERED: Dextrose 5 %-0.45 % NaCl 1,000 ML IV PRN (04:40)
[2022-09-08] MEDS ORDERED: Electrolyte Replacement Protocol 1 EACH IVPB ONE (04:40)
[2022-09-08] MEDS ORDERED: Dextrose 50% Abboject 50 ML SYRINGE SLOW IVP PRN ×2 (04:40→10:06)
[2022-09-08] MEDS ORDERED: Ondansetron ODT 4 MG TAB PO PRN (04:44)
[2022-09-08 04:52] LABS: SARS-CoV-2 NAA Rapid Test Not Detected (NotDetected)
[2022-09-08] MEDS ORDERED: D5 1/2 NS w/20 mEq KCL 1,000 ML ONE ×2 (04:53→09:26)
[2022-09-08] MEDS ORDERED: INSULIN REGULAR IN 0.9 % NACL 100 UNIT in Premix Bag 1 BAG IVPB SCH (05:00)
[2022-09-08 05:30] LABS: Anion Gap 21 mmol/L (10-20); BUN (Urea Nitrogen) 75 mg/dL (8.9-20.6); Calc. Creatinine Clearance 0 mL/min (70-130); Calcium 10.2 mg/dL (7.8-10.44); Carbon Dioxide 28 mmol/L (22-29); Cardiac Risk 3.6 (Less than 4.5); Chloride 95 mmol/L (98-107); Cholesterol 164 mg/dl (< 200 Desired); Estimated GFR 16; Glucose 178 mg/dL (70-105); HDL Cholesterol 45 mg/dL (>60 Neg Risk); LDL Cholesterol, Calculated 85 mg/dL; Magnesium 1.9 mg/dL (1.6-2.6); Phosphorus 2.1 mg/dL (2.3-4.7); Sodium 140 mmol/L (136-145); Triglycerides 168 mg/dL (Less than 150)
[2022-09-08 05:52] LABS: Lactic Acid 1.3 mmol/L (0.5-2.2)
[2022-09-08] MEDS ORDERED: Nicotine 21 MG PATCH ONE (06:25)
[2022-09-08] MEDS: Ondansetron PF 4 MG/2 ML Vial IVP PRN ×2 (07:35→13:23)
[2022-09-08] MEDS: Morphine 4 MG/ML VIAL SLOW IVP PRN ×2 (07:35→13:23)
[2022-09-08] MEDS: Ipratropium/Albuterol 3 ML NEB NEB SCH ×3 (08:31→19:37)
[2022-09-08] MEDS ORDERED: Pantoprazole 40 MG VIAL ONE (08:40)
[2022-09-08] MEDS ORDERED: Pantoprazole 40 MG VIAL IVP SCH (09:00)
[2022-09-08 09:06] LABS: Anion Gap 18 mmol/L (10-20); BUN (Urea Nitrogen) 69 mg/dL (8.9-20.6); Calc. Creatinine Clearance 0 mL/min (70-130); Calcium 9.9 mg/dL (7.8-10.44); Carbon Dioxide 29 mmol/L (22-29); Chloride 94 mmol/L (98-107); Estimated GFR 19; Glucose 155 mg/dL (70-105); Potassium 4.1 mmol/L (3.5-5.1); Sodium 137 mmol/L (136-145)
[2022-09-08] MEDS ORDERED: Dextrose 5% in Water 1,000 ML IV PRN (10:06)
[2022-09-08 13:03] LABS: Anion Gap 18 mmol/L (10-20); BUN (Urea Nitrogen) 67 mg/dL (8.9-20.6); Calc. Creatinine Clearance 0 mL/min (70-130); Calcium 9.7 mg/dL (7.8-10.44); Carbon Dioxide 26 mmol/L (22-29); Chloride 97 mmol/L (98-107); Estimated GFR 21; Glucose 170 mg/dL (70-105); Sodium 137 mmol/L (136-145)
[2022-09-08] MEDS: Nicotine 21 MG PATCH TD SCH (13:14)
[2022-09-08 18:42] VITALS: BMI 28.8
[2022-09-08] MEDS: Dextrose 5 %-0.45 % NaCl 1,000 ML IV SCH ×2 (19:49→23:08)
[2022-09-08] MEDS ORDERED: traZODone HCl 50 MG TAB PO SCH (21:00)
[2022-09-08] MEDS: Sodium Chloride 0.45% 1,000 ML IV SCH (21:52)
[2022-09-08] MEDS: HumaLOG 300 UNITS/3 ML VIAL SC PRN (21:53)
[2022-09-09] MEDS: Ipratropium/Albuterol 3 ML NEB NEB SCH ×4 (01:27→20:00)
[2022-09-09 04:50] LABS: #Basophils 0.1 10x3/uL (0.0-0.2); #Eosinphils 0.2 10x3/uL (0.0-0.5); #Neutrophils 5.7 10x3/uL (1.5-8.4); %Basophils 0.8 % (0.0-2.0); %Eosinophils 2.2 % (0.0-6.0); %Lymphocytes 24.9 % (18.0-47.0); %Monocytes 10.7 % (0.0-10.0); %Neutrophils 61.2 % (40.0-75.0); Mean Corpuscular HGB CONC 33.6 g/dL (32.0-36.0); Mean Corpuscular Hemoglobin 28.6 pg (27.0-33.0); Mean Corpuscular Volume 85.1 fl (81.2-95.1); Mean Platelet Volume 8.7 fl (7.4-10.4); Platelet Count 404 10x3/uL (150-450); RBC Distribution Width 14.6 % (11.5-14.5); Red Blood Cell (RBC) Count 5.24 10x6/uL (4.32-5.72); White Blood Cell (WBC) Count 9.2 10x3/uL (3.5-10.5)
[2022-09-09 05:03] LABS: Anion Gap 18 mmol/L (10-20); BUN (Urea Nitrogen) 47 mg/dL (8.9-20.6); Calc. Creatinine Clearance 47 mL/min (70-130); Calcium 9.9 mg/dL (7.8-10.44); Carbon Dioxide 26 mmol/L (22-29); Chloride 97 mmol/L (98-107); Estimated GFR 34; Glucose 194 mg/dL (70-105); Potassium 4.5 mmol/L (3.5-5.1); Sodium 136 mmol/L (136-145)
[2022-09-09] MEDS: Nicotine 21 MG PATCH TD SCH (05:34)
[2022-09-09] MEDS: HumaLOG 300 UNITS/3 ML VIAL SC PRN (05:34)
[2022-09-09] MEDS: Sodium Chloride 0.45% 1,000 ML IV SCH (05:39)
[2022-09-09] MEDS ORDERED: Venlafaxine HCl XR 75 MG CAP PO SCH (09:00)
[2022-09-09 22:29] VITALS: BP 134/98; TEMP 99.6
[2022-09-11] MEDS ORDERED: FLU VACC QS2022-23(6MOS UP)/PF 60 MCG/0.5 ML SYRINGE IM ONE (19:00)
== END 2022-09-09 18:45 | disposition home or self-care (01) | DRG 638 ==
LOC: CSHERS 02:18 → CSHERHOLD 04:37 → CSHTELE 16:35
PROVIDERS: ADMIT Family Medicine; ATTEND Internal Medicine
DX: E11.10 Type 2 diabetes mellitus with ketoacidosis without coma (principal); N17.9 Acute kidney failure, unspecified; K21.9 Gastro-esophageal reflux disease without esophagitis; I10 Essential (primary) hypertension; K74.60 Unspecified cirrhosis of liver; F41.9 Anxiety disorder, unspecified; E78.5 Hyperlipidemia, unspecified; F17.210 Nicotine dependence, cigarettes, uncomplicated; E86.0 Dehydration; J44.9 Chronic obstructive pulmonary disease, unspecified; E11.42 Type 2 diabetes mellitus with diabetic polyneuropathy; F32.A Depression, unspecified; Z20.822 Contact with and (suspected) exposure to COVID-19; F12.90 Cannabis use, unspecified, uncomplicated; Z79.51 Long term (current) use of inhaled steroids; Z79.899 Other long term (current) drug therapy
CPT/HCPCS: 36415; 36416; 71045; 74176; 80048; 80053; 80061; 80306; 81003; 81015; 82010; 82805; 83605; 83690; 83735; 84100; 84484; 85025; 93005; 94640; 94760; C9113; J1630; J1650; J1815; J2270; J2405; J3480; J7620; U0002

== ENCOUNTER 2022-09-16 08:44 | Emergency (ER) | payer OTHER ==
[2022-09-16 09:21] LABS: #Monocytes 0.9 10x3/uL (0.0-1.1); %Basophils 0.3 % (0.0-2.0); %Eosinophils 0.2 % (0.0-6.0); %Lymphocytes 7.3 % (18.0-47.0); %Monocytes 6.2 % (0.0-10.0); %Neutrophils 85.6 % (40.0-75.0); Hemoglobin 13.4 g/dL (13.5-17.5); Mean Corpuscular HGB CONC 34.5 g/dL (32.0-36.0); Mean Corpuscular Hemoglobin 29.1 pg (27.0-33.0); Mean Corpuscular Volume 84.2 fl (81.2-95.1); Mean Platelet Volume 8.7 fl (7.4-10.4); Platelet Count 420 10x3/uL (150-450); RBC Distribution Width 13.9 % (11.5-14.5); Red Blood Cell (RBC) Count 4.61 10x6/uL (4.32-5.72); White Blood Cell (WBC) Count 15.1 10x3/uL (3.5-10.5)
[2022-09-16 09:31] LABS: PTT 26.2 sec (22.0-33.0); Prothrombin Time 11.1 sec (9.5-12.1)
[2022-09-16] MEDS ORDERED: Morphine 4 MG/ML VIAL ONE (09:31)
[2022-09-16] MEDS ORDERED: Ondansetron PF 4 MG/2 ML Vial ONE (09:32)
[2022-09-16 09:41] LABS: ALT (SGPT) 26 U/L (8-55); AST (SGOT) 12 U/L (5-34); Acetaminophen Less than 10.0 mcg/mL (10.0-30.0); Albumin 4.6 g/dL (3.5-5.0); Alcohol Less than 10 mg/dL (Less than 10); Alkaline Phosphatase 82 U/L (40-110); Anion Gap 17 mmol/L (10-20); BUN (Urea Nitrogen) 48 mg/dL (8.9-20.6); Bilirubin, Total 0.5 mg/dL (0.2-1.2); Calc. Creatinine Clearance 0 mL/min (70-130); Calcium 9.5 mg/dL (7.8-10.44); Carbon Dioxide 31 mmol/L (22-29); Chloride 92 mmol/L (98-107); Estimated GFR 33; Globulin 2.9 g/dL (2.4-3.5); Glucose 213 mg/dL (70-105); Magnesium 1.4 mg/dL (1.6-2.6); Potassium 4.8 mmol/L (3.5-5.1); Protein, Total 7.5 g/dL (6.0-8.3); Salicylate Less than 8.0 mg/dL (15.0-30.0); Sodium 135 mmol/L (136-145)
[2022-09-16] MEDS ORDERED: Magnesium 2 GM/50 ML BAG (IN WATER) ONE (09:56)
[2022-09-16] MEDS ORDERED: Mag-Al Plus 1200 MG/1200 MG/120 MG/30 ML UDCUP ONE (10:14)
[2022-09-16] MEDS ORDERED: Lidocaine Viscous Sol 2% 15 ml UD Cup ONE (10:14)
[2022-09-16] MEDS ORDERED: Haloperidol Lactate 5 MG/ML VIAL ONE (10:37)
[2022-09-16 10:50] LABS: Bilirubin Neg (Negative); Blood, Urine Negative (Negative); Clarity Clear (Clear); Glucose, Urine (Dipstick) >=1000 mg/dL (Negative); Ketone, Urine 5 mg/dL (Negative); Leukocyte Negative (Negative); Nitrite Negative (Negative); Protein, Urine (Dipstick) 15 mg/dl (Neg-Trace); Urobilinogen Normal mg/dL (Less than 2)
[2022-09-16 10:58] LABS: Amphetamine Not Detected (NotDetected); Barbiturates Screen Not Detected (NotDetected); Benzodiazepine Screen Not Detected (NotDetected); Cocaine Metabolite Screen Not Detected (NotDetected); Methadone Not Detected (NotDetected); Methamphetamine Not Detected (NotDetected); Opiate Screen Detected (NotDetected); Oxycodone Screen Not Detected (NotDetected); Phencyclidine (PCP) Not Detected (NotDetected); THC/Cannabinoid Screen Detected (NotDetected); Tricyclic Screen Not Detected (NotDetected)
== END 2022-09-16 11:46 | disposition home or self-care (01) ==
LOC: CSHERS 08:44
DX: R10.9 Unspecified abdominal pain (principal); R11.2 Nausea with vomiting, unspecified; E11.9 Type 2 diabetes mellitus without complications; I10 Essential (primary) hypertension; E78.5 Hyperlipidemia, unspecified; F17.210 Nicotine dependence, cigarettes, uncomplicated
CPT/HCPCS: 71045; 74177; 80053; 80306; 80307; 81003; 82010; 83605; 83690; 83735; 84484; 85025; 85610; 85730; 93005; 94760; 96361; 96365; 96375; J1630; J2270; J2405; J3475

== ENCOUNTER 2025-06-14 07:34 | Emergency (ER) | payer OTHER, MEDICAID ==
[2025-06-14 08:23] LABS: #Basophils 0.04 10x3/uL (0.0-0.2); #Eosinophils 0.05 10x3/uL (0.0-0.5); #Monocytes 1.15 10x3/uL (0.0-1.1); #Neutrophils 4.58 10x3/uL (1.5-8.4); %Basophils 0.6 % (0.0-2.0); %Eosinophils 0.7 % (0.0-6.0); %Lymphocytes 13.6 % (18.0-47.0); %Monocytes 17.0 % (0.0-10.0); %Neutrophils 67.5 % (40.0-75.0); Hematocrit 36.8 % (38.8-50.0); Hemoglobin 12.4 g/dL (13.5-17.5); Mean Corpuscular Hemoglobin 30.1 pg (27.0-33.0); Mean Corpuscular Volume 89.3 fL (81.2-95.1); Platelet Count 494 10x3/uL (150-450); Red Blood Cell (RBC) Count 4.12 10x6/uL (4.32-5.72); White Blood Cell (WBC) Count 6.78 10x3/uL (3.5-10.5)
[2025-06-14 08:39] LABS: ALT (SGPT) 42 U/L (Less than 45); AST (SGOT) 23 U/L (11-34); Albumin 3.3 g/dL (3.1-4.5); Alkaline Phosphatase 165 U/L (40-110); Anion Gap 18 mmol/L (10-20); BUN (Urea Nitrogen) 22 mg/dL (8.9-20.6); Bilirubin, Total 0.3 mg/dL (0.3-1.2); Calc. Creatinine Clearance 0 mL/min (70-130); Calcium 8.8 mg/dL (7.8-10.44); Carbon Dioxide 27 mmol/L (22-29); Chloride 93 mmol/L (98-107); Globulin 3.1 g/dL (2.4-3.5); Sodium 132 mmol/L (136-145)
[2025-06-14 08:43] LABS: Glucose 791 mg/dL (70-105); Potassium 6.1 mmol/L (3.5-5.1)
[2025-06-14] MEDS ORDERED: INSULIN REGULAR IN 0.9 % NACL 100 ML ONE (08:57)
[2025-06-14] MEDS ORDERED: Calcium Gluc 4.6 MEQ/10 ML (100 MG/ML) ONE (09:19)
[2025-06-14 10:01] LABS: Anion Gap 15 mmol/L (10-20); BUN (Urea Nitrogen) 24 mg/dL (8.9-20.6); Calc. Creatinine Clearance 0 mL/min (70-130); Calcium 8.9 mg/dL (7.8-10.44); Carbon Dioxide 28 mmol/L (22-29); Chloride 93 mmol/L (98-107); Potassium 4.8 mmol/L (3.5-5.1); Sodium 131 mmol/L (136-145)
[2025-06-14 10:09] LABS: Glucose 673 mg/dL (70-105)
[2025-06-14 10:29] LABS: Actual Bicarbonate (HCO3v) 28.7 mEq/L (22-28); Analyzer IN Cardio CS ER; Base Excess 4.8 mEq/L (-2 - +2); Calcium, Ionized (venous) 1.10 mmol/L (1.16-1.32); Chloride (VBG) 93 mmol/L (98-106); Critical Notified By: Udy, RRT; Hematocrit-VBG 39 % (42.0-52.0); Hemoglobin (Hb) 13.4 g/dL (13.1-17.2); Potassium (VBG) 4.77 mmol/L (3.70-5.30); Puncture Site Other Site; RapidComm Collect By CSUC.CNC; Sodium 132 mmol/L (133-146)
[2025-06-14] MEDS ORDERED: HYDROcodone/Acetaminophen 10/325 mg Tablet ONE (11:12)
== END 2025-06-14 16:45 | disposition home or self-care (01) ==
LOC: CSHERS 07:34
DX: G89.18 Other acute postprocedural pain (principal); M25.522 Pain in left elbow; E11.9 Type 2 diabetes mellitus without complications; F10.10 Alcohol abuse, uncomplicated; I10 Essential (primary) hypertension; F17.210 Nicotine dependence, cigarettes, uncomplicated
CPT/HCPCS: 80048; 80053; 82010; 82805; 82962; 83605; 85025; 86140; 87040; 93005; 96361; 96365; 96367; 96375; 96376; 99283; J0612; J1815 ×2; J2060; J2272; 36415; 36416